=== PATIENT | female | born 1945 | race Caucasian/White ===

== ENCOUNTER → 2016-10-03 | Outpatient (CLI) | payer MEDICARE ==
--- NOTE | 2016-10-03 16:02 | XR ---
EXAMINATION TYPE: XR chest 2V DATE OF EXAM: 10/03/2016 3:57 PM COMPARISON: 06/18/2016 HISTORY: Shortness of breath TECHNIQUE: Frontal and lateral views of the chest are obtained. FINDINGS: Scattered senescent parenchymal changes noted. Hyperinflation compatible with COPD. No evidence for infiltrate. No evidence for atelectasis. Ill-defined right upper lobe pulmonary nodul e measures 1.[address] correlation is advised. Heart size is stable. Mediastinal structures are stable and grossly unremarkable. No evidence for hilar prominence. Degenerative changes dorsal spine. IMPRESSION: 1. No evidence for acute pulmonary disease. 2.Ill-defined right upper lobe pulmonary nodule measures 1.[address] correlation is advised
--- NOTE | 2016-10-06 14:42 | MM ---
Reason for exam: screening (asymptomatic). Last mammogram was performed 3 years and 11 months ago. History: Patient is postmenopausal. Cyst aspiration of the left breast. Took estrogen for 19 years beginning at age 43. Physical Findings: A clinical breast exam by your physician is recommended on an annual basis and results should be correlated with mammographic findings. MG 3D Screening Mammo W/Cad Bilateral CC and MLO view(s) were taken. Prior study comparison: November 11, 2012, bilateral digital screening mammo w/CAD. October 04, 2009, bilateral diagnostic digital mammog. There are scattered fibroglandular densities. Finding: There is a benign appearing, equal architectural distortion in the lower outer quadrant, middle position of the left breast, 5cm from the nipple. Small increased density right MLO view, not suspicious on tomosynthesis. Short term follow up in the right breast is recommended. New finding since November 11, 2012 and October 04, 2009. ASSESSMENT: Probably benign, BI-RAD 3 RECOMMENDATION: Follow-up diagnostic mammogram of both breasts in 6 months.
== END | disposition home or self-care (01) ==
LOC: RADMAMWWP 15:18
PROVIDERS: ATTEND Family Medicine
DX: Z12.31 Encounter for screening mammogram for malignant neoplasm of breast (principal); R91.1 Solitary pulmonary nodule
CPT/HCPCS: 71020; 77063; G0202

== ENCOUNTER → 2016-10-16 | Outpatient (CLI) | payer MEDICARE ==
--- NOTE | 2016-10-16 14:10 | CT ---
EXAMINATION TYPE: CT chest wo con DATE OF EXAM: 10/16/2016 1:41 PM COMPARISON: Prior chest x-ray September HISTORY: Patient has no complaints at time of service. Follow up to abnormal CXRs at [facility]. CT DLP: 192.9 mGycm Automated exposure control for dose reduction was used. FINDINGS: There is an ill-defined area of increased density in the right upper lobe measuring approximately 13 to 14 mm in size which likely corresponds to the area of abnormal increased attenuation seen on chest x-ray. Spicule of pleural extension is present at this level. There is no mediastinal, axillary, or hilar adenopathy. Coronary artery calcifications are present. Ascending aorta measures 3.8 cm. No end obronchial lesion, pleural or pericardial effusion. Patient is post cholecystectomy. No evident renal mass. IMPRESSION: ILL-DEFINED AREA OF INCREASED ATTENUATION RIGHT UPPER LOBE FELT LIKELY TO BE POSTINFLAMMATORY CHANGE. Follow-up to assess for stability or resolution.
== END | disposition home or self-care (01) ==
LOC: RADCTMAIN 13:14
PROVIDERS: ATTEND Family Medicine
DX: R91.8 Other nonspecific abnormal finding of lung field (principal)
CPT/HCPCS: 71250

== ENCOUNTER → 2017-03-12 | Outpatient (CLI) | payer MEDICARE ==
--- NOTE | 2017-03-12 14:28 | MM ---
Reason for exam: follow-up at short interval from prior study. Last mammogram was performed 5 months ago. History: Patient is postmenopausal. Cyst aspiration of the left breast, 1999. Took estrogen for 19 years beginning at age 43. Physical Findings: Nurse did not find any significant physical abnormalities on exam. MG 3D Diag Mammo W/Cad VIKTORIYA Bilateral CC and MLO view(s) were taken. Prior study comparison: October 03, 2016, bilateral MG 3d screening mammo w/cad. There are scattered fibroglandular densities. There is no discrete abnormality in the right or left breast. No significant new findings when compared with previous films. These results were verbally communicated with the patient and result sheet given to the patient on 03/12/17. ASSESSMENT: Benign, BI-RAD 2 RECOMMENDATION: Routine screening mammogram of both breasts in 1 year.
== END | disposition home or self-care (01) ==
LOC: RADMAMWWP 12:56
PROVIDERS: ATTEND Family Medicine
DX: R92.8 Other abnormal and inconclusive findings on diagnostic imaging of breast (principal)
CPT/HCPCS: G0204; G0279

== ENCOUNTER → 2017-05-05 | Outpatient (CLI) | payer MEDICARE ==
--- NOTE | 2017-05-05 15:52 | XR ---
EXAMINATION TYPE: XR bone survey complete DATE OF EXAM: 05/05/2017 COMPARISON: NONE HISTORY: E03.9 hypothyroidism, I10 HTN, D64.89 anemia Bony calvarium : 2 views of the bony calvarium demonstrate no lytic or sclerotic lesion Spine: Two views of the cervical, thoracic and lumbar spines are submitted. Moderate to severe degen erative change throughout the cervical spine with disc space narrowing and spondylosis. No lesions id entified. Moderate degenerative changes thoracic spine wo lesion identified. Moderate degenerative na rrowing lumbar spine wo lesions seen. Grade 2 anterolisthesis L4 and L5. PELVIS: Single view of the pelvis demonstrates no lytic or blastic lesions. UPPER EXTREMITIES: Two views of the upper extremities demonstrates no lytic or blastic lesions. LOWER EXTREMITIES: 2 views of the lower extremities demonstrates no lytic or blastic lesions. IMPRESSION: 1. No lytic or blastic lesions identified.
== END | disposition home or self-care (01) ==
LOC: RADXRMAIN 15:16
PROVIDERS: ATTEND Internal Medicine Hematology & Oncology
DX: D64.89 Other specified anemias (principal); E03.9 Hypothyroidism, unspecified; I10 Essential (primary) hypertension
CPT/HCPCS: 77075

== ENCOUNTER 2017-11-12 06:53 | Inpatient (IN) | payer MEDICARE ==
[2017-11-12] MEDS ORDERED: PANTOPRAZOLE 40 MG/10 ML VIAL IVP STA (07:27)
[2017-11-12] MEDS ORDERED: SODIUM CHLORIDE 0.9% 1,000 ML IV STA (07:27)
--- NOTE | 2017-11-12 07:30 | ED ---
General Adult HPI - General Chief complaint: GI Bleed Stated complaint: vomiting blood Time Seen by Provider: 11/12/17 07:20 Source: patient, family, RN notes reviewed Mode of arrival: ambulatory Limitations: no limitations - History of Present Illness Initial comments: Patient is a pleasant 72-year-old female presenting to the emergency Department with gastric intestinal bleeding. Patient has had rectal bleeding for the last couple of days, multiple times last night. Patient also had an episode of vomiting blood this morning. Patient is on Celebrex. Patient did have recent knee surgery. Patient does feel somewhat fatigued and lightheaded. Patient does have dyspnea with exertion. Family agrees patient looks pale. No abdominal pain. - Related Data Home Medications Medication Instructions Recorded Confirmed Acetaminophen Tab [Tylenol] 325 - 650 mg PO Q6H PRN 06/18/16 11/12/17 Levothyroxine Sodium [Synthroid] 88 mcg PO DAILY 06/18/16 11/12/17 Aspirin EC [Ecotrin Low Dose] 81 mg PO BID 11/12/17 11/12/17 Celecoxib [CeleBREX] 200 mg PO BID 11/12/17 11/12/17 Gabapentin [Neurontin] 200 mg PO TID 11/12/17 11/12/17 Lisinopril [Prinivil] 20 mg PO DAILY 11/12/17 11/12/17 Metoprolol Succinate [Toprol Xl] 50 mg PO DAILY 11/12/17 11/12/17 [place]-3 Fatty Acids/Fish Oil [Fish 1 cap PO DAILY 11/12/17 11/12/17 Oil 1,000 mg Softgel] traMADol HCL [Ultram] 50 mg PO BID PRN 11/12/17 11/12/17 Allergies Allergy/AdvReac Type Severity Reaction Status Date / Time ketorolac [From Toradol] AdvReac Abdominal Verified 11/12/17 08:15 Pain Review of Systems ROS Statement: Those systems with pertinent positive or pertinent negative responses have been documented in the HPI. ROS Other: All systems not noted in ROS Statement are negative. Constitutional: Denies: fever Eyes: Denies: eye pain ENT: Denies: ear pain Respiratory: Denies: cough Cardiovascular: Denies: chest pain Endocrine: Reports: fatigue Gastrointestinal: Reports: abdominal pain, hematemesis, melena, hematochezia Genitourinary: Denies: hematuria Musculoskeletal: Denies: back pain Skin: Denies: rash Neurological: Denies: headache Past Medical History Past Medical History: Hypertension, Thyroid Disorder Additional Past Medical History / Comment(s): kidney stone History of Any Multi-Drug Resistant Organisms: None Reported Past Surgical History: Section, Cholecystectomy, Hysterectomy, Orthopedic Surgery Additional Past Surgical History / Comment(s): gastric Past Psychological History: No Psychological Hx Reported Smoking Status: Former smoker Past Alcohol Use History: Rare Past Drug Use History: None Reported General Exam Limitations: no limitations General appearance: alert, in no apparent distress Head exam: Present: atraumatic, normocephalic Eye exam: Present: normal appearance, PERRL ENT exam: Present: normal oropharynx Neck exam: Present: normal inspection Respiratory exam: Present: normal lung sounds bilaterally Cardiovascular Exam: Present: regular rate, normal rhythm GI/Abdominal exam: Present: soft. Absent: tenderness Rectal exam: Present: black stool Extremities exam: Present: normal inspection Neurological exam: Present: alert Psychiatric exam: Present: normal affect, normal mood Skin exam: Present: pallor Course Vital Signs 11/12/17 11/12/17 06:56 07:47 Temperature 97.3 F L Pulse Rate 96 82 Respiratory 20 16 Rate Blood Pressure 204/84 180/81 O2 Sat by Pulse 99 99 Oximetry EKG Findings - EKG Comments: EKG Findings:: Sinus rhythm at 88. NH 138. QRS 72. QT 364. QTC 440. Normal axis. Normal QRS. No acute ST change. Medical Decision Making - Medical Decision Making Patient reevaluated and resting comfortably in bed. Vital signs stable. Patient and family updated on results and plan. Patient has previously seen Dr. Ingram and Dr. Hopson. Case was discussed in detail with Dr. Mccormick, who will admit for Dr. Anderson. - Lab Data Result diagrams: 11/12/17 07:20 11/12/17 07:20 Lab Results 11/12/17 11/12/17 11/12/17 Range/Units 07:20 07:20 07:20 WBC 12.1 H (3.8-10.6) k/uL RBC 2.02 L (3.80-5.40) m/uL Hgb 6.4 L* (11.4-16.0) gm/dL Hct 21.1 L (34.0-46.0) % MCV 104.2 H (80.0-100.0) fL MCH 31.8 (25.0-35.0) pg MCHC 30.5 L (31.0-37.0) g/dL RDW 15.5 (11.5-15.5) % Plt Count 473 H (150-450) k/uL Neutrophils % 73 % Lymphocytes % 19 % Monocytes % 5 % Eosinophils % 2 % Basophils % 0 % Neutrophils # 8.8 H (1.3-7.7) k/uL Lymphocytes # 2.3 (1.0-4.8) k/uL Monocytes # 0.6 (0-1.0) k/uL Eosinophils # 0.2 (0-0.7) k/uL Basophils # 0.0 (0-0.2) k/uL Hypochromasia Slight Macrocytosis Moderate PT (9.0-12.0) sec INR (<1.2) APTT (22.0-30.0) sec Sodium 139 (137-145) mmol/L Potassium 4.3 (3.5-5.1) mmol/L Chloride 105 (98-107) mmol/L Carbon Dioxide 25 (22-30) mmol/L Anion Gap 9 mmol/L BUN 28 H (7-17) mg/dL Creatinine 0.68 (0.52-1.04) mg/dL Est GFR (MDRD) Af Amer >60 (>60 ml/min/1.73 sqM) Est GFR (MDRD) Non-Af >60 (>60 ml/min/1.73 sqM) Glucose 128 H (74-99) mg/dL Calcium 9.2 (8.4-10.2) mg/dL Total Bilirubin 0.4 (0.2-1.3) mg/dL AST 23 (14-36) U/L ALT 36 (9-52) U/L Alkaline Phosphatase 105 (38-126) U/L Total Creatine Kinase 21 L (30-135) U/L CK-MB (CK-2) 0.3 (0.0-2.4) ng/mL CK-MB (CK-2) Rel Index 1.4 Troponin I <0.012 (0.000-0.034) ng/mL Total Protein 5.9 L (6.3-8.2) g/dL Albumin 3.3 L (3.5-5.0) g/dL Stool Occult Blood (Negative) Blood Type Blood Type Recheck Antibody Screen Spec Expiration Date 11/12/17 11/12/17 11/12/17 Range/Units 07:20 07:20 07:32 WBC (3.8-10.6) k/uL RBC (3.80-5.40) m/uL Hgb (11.4-16.0) gm/dL Hct (34.0-46.0) % MCV (80.0-100.0) fL MCH (25.0-35.0) pg MCHC (31.0-37.0) g/dL RDW (11.5-15.5) % Plt Count (150-450) k/uL Neutrophils % % Lymphocytes % % Monocytes % % Eosinophils % % Basophils % % Neutrophils # (1.3-7.7) k/uL Lymphocytes # (1.0-4.8) k/uL Monocytes # (0-1.0) k/uL Eosinophils # (0-0.7) k/uL Basophils # (0-0.2) k/uL Hypochromasia Macrocytosis PT 11.0 (9.0-12.0) sec INR 1.1 (<1.2) APTT 22.7 (22.0-30.0) sec Sodium (137-145) mmol/L Potassium (3.5-5.1) mmol/L Chloride (98-107) mmol/L Carbon Dioxide (22-30) mmol/L Anion Gap mmol/L BUN (7-17) mg/dL Creatinine (0.52-1.04) mg/dL Est GFR (MDRD) Af Amer (>60 ml/min/1.73 sqM) Est GFR (MDRD) Non-Af (>60 ml/min/1.73 sqM) Glucose (74-99) mg/dL Calcium (8.4-10.2) mg/dL Total Bilirubin (0.2-1.3) mg/dL AST (14-36) U/L ALT (9-52) U/L Alkaline Phosphatase (38-126) U/L Total Creatine Kinase (30-135) U/L CK-MB (CK-2) (0.0-2.4) ng/mL CK-MB (CK-2) Rel Index Troponin I (0.000-0.034) ng/mL Total Protein (6.3-8.2) g/dL Albumin (3.5-5.0) g/dL Stool Occult Blood Positive H (Negative) Blood Type O Positive Blood Type Recheck No Antibody Screen NEGATIVE Spec Expiration Date 11/15/2017 - 2320 Critical Care Time Critical Care Time: Yes Total Critical Care Time: 32 Disposition Clinical Impression: Gastrointestinal hemorrhage Disposition: ADMITTED IP TO THIS HOSP Condition: Serious Referrals: Ruthy Squires MD [Primary Care Provider] - 1-2 days Decision Time: 08:46
[2017-11-12 07:59] LABS: ALT 36 U/L (9-52); AST 23 U/L (14-36); Albumin 3.3 g/dL (3.5-5.0); Alkaline Phosphatase 105 U/L (38-126); Anion Gap 9 mmol/L; Blood Urea Nitrogen 28 mg/dL (7-17); Calcium 9.2 mg/dL (8.4-10.2); Carbon Dioxide 25 mmol/L (22-30); Chloride 105 mmol/L (98-107); Glucose 128 mg/dL (74-99); INR 1.1 (<1.2); Partial Thromboplastin Time 22.7 sec (22.0-30.0); Potassium 4.3 mmol/L (3.5-5.1); Sodium 139 mmol/L (137-145); Total Bilirubin 0.4 mg/dL (0.2-1.3); Total Protein 5.9 g/dL (6.3-8.2)
[2017-11-12 08:04] LABS: Creatine Kinase 21 U/L (30-135)
[2017-11-12 08:13] LABS: Basophils % (A) 0 %; Eosinophils # (A) 0.2 k/uL (0-0.7); Eosinophils % (A) 2 %; HCT 21.1 % (34.0-46.0); Hypochromasia Slight; Lymphocytes # (A) 2.3 k/uL (1.0-4.8); Lymphocytes % (A) 19 %; MCH 31.8 pg (25.0-35.0); MCHC 30.5 g/dL (31.0-37.0); MCV 104.2 fL (80.0-100.0); Macrocytosis Moderate; Mean Platelet Volume 8.1; Monocytes # (A) 0.6 k/uL (0-1.0); Monocytes % (A) 5 %; Neutrophils # (A) 8.8 k/uL (1.3-7.7); Neutrophils % (A) 73 %; Platelet Count 473 k/uL (150-450); RBC 2.02 m/uL (3.80-5.40); RDW 15.5 % (11.5-15.5); WBC 12.1 k/uL (3.8-10.6)
[2017-11-12 08:18] LABS: Creatine Kinase MB 0.3 ng/mL (0.0-2.4); HGB 6.4 gm/dL (11.4-16.0); Troponin I <0.012 ng/mL (0.000-0.034)
[2017-11-12] MEDS ORDERED: NALOXONE 0.4 MG/ML 1 ML VIAL IV PRN (08:47)
[2017-11-12] MEDS: SODIUM CHLORIDE 0.9% 1,000 ML IV SCH ×2 (08:59→19:04)
--- NOTE | 2017-11-12 11:14 | P.GSCN ---
<Janice Rapp - Last Filed: 11/12/17 10:58> History of Present Illness Consult date: 11/12/17 Reason for Consult: Acute blood loss anemia suspect GI bleed History of present illness: 72-year-old female presented to the emergency room on the day of admission with a chief complaint of developing over the last several days multiple episodes of having rectal bleeding dark maroon stool. Patient additionally stated that she started vomiting blood this morning stated that she's been experiencing extreme fatigue feeling dizzy lightheaded. Additionally reports having shortness of breath with any exertion. states she's recuperating from having a left knee done at [facility] on October 26. states that when she was discharged she was discharged on Celebrex 100 mg twice a day with aspirin. Patient was not taking any PPI at that time. Patient gives a history of in 2012 having a gastric ulcer treated surgically by Dr. Mendoza additionally patient states DrPedro Luis Ingram did do an EGD and a colonoscopy in 2011 there were no acute findings according to the patient currently patient is sitting up in bed is pale in appearance with a hemoglobin on arrival of 6.4. Patient states since being in the emergency room has had one hematemesis with melena. Patient continues to be report feeling dizzy lightheaded. Systolic blood pressure is elevated 170-200 denying chest pain when questioning. Past surgical history cholecystectomy, , hysterectomy, a recent left total knee done October 26 2017 Past medical history hypertension, thyroid, Review of Systems Essentially unremarkable except as mentioned in the present illness Past Medical History Past Medical History: Hypertension, Thyroid Disorder Additional Past Medical History / Comment(s): kidney stone History of Any Multi-Drug Resistant Organisms: None Reported Past Surgical History: Section, Cholecystectomy, Hysterectomy, Orthopedic Surgery Additional Past Surgical History / Comment(s): gastric Past Psychological History: No Psychological Hx Reported Smoking Status: Former smoker Past Alcohol Use History: Rare Past Drug Use History: None Reported Medications and Allergies Home Medications Medication Instructions Recorded Confirmed Type Acetaminophen Tab [Tylenol] 325 - 650 mg PO Q6H PRN 06/18/16 11/12/17 History Levothyroxine Sodium [Synthroid] 88 mcg PO DAILY 06/18/16 11/12/17 History Aspirin EC [Ecotrin Low Dose] 81 mg PO BID 11/12/17 11/12/17 History Celecoxib [CeleBREX] 200 mg PO BID 11/12/17 11/12/17 History Gabapentin [Neurontin] 200 mg PO TID 11/12/17 11/12/17 History Lisinopril [Prinivil] 20 mg PO DAILY 11/12/17 11/12/17 History Metoprolol Succinate [Toprol Xl] 50 mg PO DAILY 11/12/17 11/12/17 History [place]-3 Fatty Acids/Fish Oil [Fish 1 cap PO DAILY 11/12/17 11/12/17 History Oil 1,000 mg Softgel] traMADol HCL [Ultram] 50 mg PO BID PRN 11/12/17 11/12/17 History Allergies Allergy/AdvReac Type Severity Reaction Status Date / Time ketorolac [From Toradol] AdvReac Abdominal Verified 11/12/17 08:15 Pain Surgical - Exam Vital Signs Temp Pulse Resp BP Pulse Ox 97.3 F L 96 20 204/84 99 11/12/17 06:56 11/12/17 06:56 11/12/17 06:56 11/12/17 06:56 11/12/17 06:56 GENERAL APPEARANCE: Pleasant 72-year-old female patient is alert, oriented,x 3 in no acute distress. VITAL SIGNS: Reviewed heart rate in the 100s noted elevated blood pressure 170/ 79 180/81 HEENT: Head is normocephalic and atraumatic. Pupils are equal and reactive. The nares are patent. Oropharynx is clear without lesions. NECK: Supple without lymphadenopathy. Traches midline. HEART: S1, S2. Regular rate and rhythm. Currently denying any chest pain tightness or pressure no murmur LUNGS: No crackles or wheezes are heard. 2 L sats are 99% ABDOMEN: Soft, nontender, nondistended with good bowel sounds. No peritoneal signs. No palpable organomegaly or masses. EXTREMITIES: Normal skin color and turgor. No cyanosis, rash, ulceration, clubbing or edema. Radial pedal pulses are 2/4 bilaterally. Steri-Strips to left knee intact no redness surgical tenderness to the left knee appropriate NEUROLOGICAL: No focal deficits. Strength and sensation are grossly intact. Results - Labs 11/12/17 07:20 11/12/17 07:20 Abnormal Lab Results - Last 24 Hours (Table) 11/12/17 11/12/17 11/12/17 Range/Units 07:20 07:20 07:20 WBC 12.1 H (3.8-10.6) k/uL RBC 2.02 L (3.80-5.40) m/uL Hgb 6.4 L* (11.4-16.0) gm/dL Hct 21.1 L (34.0-46.0) % MCV 104.2 H (80.0-100.0) fL MCHC 30.5 L (31.0-37.0) g/dL Plt Count 473 H (150-450) k/uL Neutrophils # 8.8 H (1.3-7.7) k/uL BUN 28 H (7-17) mg/dL Glucose 128 H (74-99) mg/dL Total Creatine Kinase 21 L (30-135) U/L Total Protein 5.9 L (6.3-8.2) g/dL Albumin 3.3 L (3.5-5.0) g/dL Stool Occult Blood (Negative) Crossmatch 11/12/17 11/12/17 Range/Units 07:20 07:32 WBC (3.8-10.6) k/uL RBC (3.80-5.40) m/uL Hgb (11.4-16.0) gm/dL Hct (34.0-46.0) % MCV (80.0-100.0) fL MCHC (31.0-37.0) g/dL Plt Count (150-450) k/uL Neutrophils # (1.3-7.7) k/uL BUN (7-17) mg/dL Glucose (74-99) mg/dL Total Creatine Kinase (30-135) U/L Total Protein (6.3-8.2) g/dL Albumin (3.5-5.0) g/dL Stool Occult Blood Positive H (Negative) Crossmatch See Detail Diabetes panel 11/12/17 Range/Units 07:20 Sodium 139 (137-145) mmol/L Potassium 4.3 (3.5-5.1) mmol/L Chloride 105 (98-107) mmol/L Carbon Dioxide 25 (22-30) mmol/L BUN 28 H (7-17) mg/dL Creatinine 0.68 (0.52-1.04) mg/dL Glucose 128 H (74-99) mg/dL Calcium 9.2 (8.4-10.2) mg/dL AST 23 (14-36) U/L ALT 36 (9-52) U/L Alkaline Phosphatase 105 (38-126) U/L Total Protein 5.9 L (6.3-8.2) g/dL Albumin 3.3 L (3.5-5.0) g/dL Calcium panel 11/12/17 Range/Units 07:20 Calcium 9.2 (8.4-10.2) mg/dL Albumin 3.3 L (3.5-5.0) g/dL Pituitary panel 11/12/17 Range/Units 07:20 Sodium 139 (137-145) mmol/L Potassium 4.3 (3.5-5.1) mmol/L Chloride 105 (98-107) mmol/L Carbon Dioxide 25 (22-30) mmol/L BUN 28 H (7-17) mg/dL Creatinine 0.68 (0.52-1.04) mg/dL Glucose 128 H (74-99) mg/dL Calcium 9.2 (8.4-10.2) mg/dL Adrenal panel 11/12/17 Range/Units 07:20 Sodium 139 (137-145) mmol/L Potassium 4.3 (3.5-5.1) mmol/L Chloride 105 (98-107) mmol/L Carbon Dioxide 25 (22-30) mmol/L BUN 28 H (7-17) mg/dL Creatinine 0.68 (0.52-1.04) mg/dL Glucose 128 H (74-99) mg/dL Calcium 9.2 (8.4-10.2) mg/dL Total Bilirubin 0.4 (0.2-1.3) mg/dL AST 23 (14-36) U/L ALT 36 (9-52) U/L Alkaline Phosphatase 105 (38-126) U/L Total Protein 5.9 L (6.3-8.2) g/dL Albumin 3.3 L (3.5-5.0) g/dL Assessment and Plan Assessment: Impression Present on admission dizziness lightheadedness shortness of breath suspect due to acute blood loss anemia Present on admission episode of hematemesis melena suspect due to acute GI bleed Recent total left knee October 26 on Celebrex twice a day dosing History of gastric ulcer 2012 Hypertension urgency present on admission Present on admission gastrointestinal bleed with a hemoglobin of 6.4 History of hypertension Osteoarthritis plan Keep nothing by mouth for plan endoscopic Agree with giving 1 unit of packed red blood cells now *Protonix 40 IV now and then daily Medicine to address the medical issues as they arise Further surgical recommendations pending after evaluated by Dr. mata Will follow with you Surgical consultation note dictated for The above impression and plan of care have been discussed and directed by signing physician. Janice Rapp nurse practitioner acting as scribe for signing physician. <Ilia Mata - Last Filed: 11/13/17 08:47> Surgical - Exam Osteopathic Statement: *. No significant issues noted on an osteopathic structural exam other than those noted in the History and Physical/Consult. Vital Signs Temp Pulse Resp BP Pulse Ox 97.3 F L 96 20 204/84 99 11/12/17 06:56 11/12/17 06:56 11/12/17 06:56 11/12/17 06:56 11/12/17 06:56 Results - Labs 11/13/17 03:42 11/13/17 03:42 Abnormal Lab Results - Last 24 Hours (Table) 11/12/17 11/12/17 11/12/17 Range/Units 07:20 16:47 17:03 RBC 2.45 L (3.80-5.40) m/uL Hgb 7.6 L (11.4-16.0) gm/dL Hct 23.8 L (34.0-46.0) % RDW 18.1 H (11.5-15.5) % Chloride (98-107) mmol/L BUN (7-17) mg/dL Glucose (74-99) mg/dL POC Glucose (mg/dL) 125 H (75-99) mg/dL Crossmatch See Detail 11/13/17 11/13/17 Range/Units 03:42 03:42 RBC 2.07 L (3.80-5.40) m/uL Hgb 6.4 L* (11.4-16.0) gm/dL Hct 20.6 L (34.0-46.0) % RDW 18.4 H (11.5-15.5) % Chloride 108 H (98-107) mmol/L BUN 24 H (7-17) mg/dL Glucose 101 H (74-99) mg/dL POC Glucose (mg/dL) (75-99) mg/dL Crossmatch Diabetes panel 11/13/17 Range/Units 03:42 Sodium 140 (137-145) mmol/L Potassium 4.0 (3.5-5.1) mmol/L Chloride 108 H (98-107) mmol/L Carbon Dioxide 24 (22-30) mmol/L BUN 24 H (7-17) mg/dL Creatinine 0.60 (0.52-1.04) mg/dL Glucose 101 H (74-99) mg/dL Calcium 8.5 (8.4-10.2) mg/dL Calcium panel 11/13/17 Range/Units 03:42 Calcium 8.5 (8.4-10.2) mg/dL Pituitary panel 11/13/17 Range/Units 03:42 Sodium 140 (137-145) mmol/L Potassium 4.0 (3.5-5.1) mmol/L Chloride 108 H (98-107) mmol/L Carbon Dioxide 24 (22-30) mmol/L BUN 24 H (7-17) mg/dL Creatinine 0.60 (0.52-1.04) mg/dL Glucose 101 H (74-99) mg/dL Calcium 8.5 (8.4-10.2) mg/dL Adrenal panel 11/13/17 Range/Units 03:42 Sodium 140 (137-145) mmol/L Potassium 4.0 (3.5-5.1) mmol/L Chloride 108 H (98-107) mmol/L Carbon Dioxide 24 (22-30) mmol/L BUN 24 H (7-17) mg/dL Creatinine 0.60 (0.52-1.04) mg/dL Glucose 101 H (74-99) mg/dL Calcium 8.5 (8.4-10.2) mg/dL Assessment and Plan Plan: Agree with above. I discussed the case with the gastroenterology team. The patient is currently stable with vital signs appropriate. She is currently receiving 1 unit of packed red blood cell. The plan is for evaluation by the gastroenterology team and upper endoscopy based on their evaluation. Surgery will remain on consult for any additional surgical intervention. We will continue to follow.
--- NOTE | 2017-11-12 12:01 | P.HPIM ---
History of Present Illness H&P Date: 11/12/17 Chief Complaint: Rectal bleeding and one episode of coffee-ground emesis This is a 72-year-old female, patient of Dr. Anderson. She has a known past medical history of a bleeding duodenal ulcer about 5 years ago and underwent EGD that caused a duodenal bowel perforation. Also, history of hypertension, hypothyroidism and former smoker. She recently had a left total knee surgery about 2 weeks ago on October 26 at [facility]. She was sent home with aspirin 81 mg twice a day and Celebrex 200 mg twice a day. Patient reports she started noticing some black stools on Thursday. And by yesterday evening she was having multiple very watery black stools. Patient also reports one episode of coffee-ground emesis. She's been feeling nauseous. She has a hemoglobin of 6.4. She's receiving 1 unit of blood in the emergency room. Patient seen and examined in the ER. No abdominal pain. No fever chills or sweats. No chest pain or shortness of breath. No burning with urination. She was found to have evidence of accelerated hypertension blood pressure of 204/84 on admission, Down to 162/71. Patient is currently nothing by mouth. Surgical service has been consulted for an EGD and possible colonoscopy. She's been started on IV Protonix IV fluids. Monitor CBC. Stool for occult blood was positive. Started on IV Vasotec as needed for elevated blood pressures. Review of Systems Please refer to HPI otherwise unremarkable Past Medical History Past Medical History: Hypertension, Thyroid Disorder Additional Past Medical History / Comment(s): kidney stone, duodenal ulcer History of Any Multi-Drug Resistant Organisms: None Reported Past Surgical History: Section, Cholecystectomy, Hysterectomy, Orthopedic Surgery Additional Past Surgical History / Comment(s): gastric, EGD about 5 years ago. Last colonoscopy 2012 reported negative Past Psychological History: No Psychological Hx Reported Smoking Status: Former smoker Past Alcohol Use History: Rare Past Drug Use History: None Reported Medications and Allergies Home Medications Medication Instructions Recorded Confirmed Type Acetaminophen Tab [Tylenol] 325 - 650 mg PO Q6H PRN 06/18/16 11/12/17 History Levothyroxine Sodium [Synthroid] 88 mcg PO DAILY 06/18/16 11/12/17 History Aspirin EC [Ecotrin Low Dose] 81 mg PO BID 11/12/17 11/12/17 History Celecoxib [CeleBREX] 200 mg PO BID 11/12/17 11/12/17 History Gabapentin [Neurontin] 200 mg PO TID 11/12/17 11/12/17 History Lisinopril [Prinivil] 20 mg PO DAILY 11/12/17 11/12/17 History Metoprolol Succinate [Toprol Xl] 50 mg PO DAILY 11/12/17 11/12/17 History [place]-3 Fatty Acids/Fish Oil [Fish 1 cap PO DAILY 11/12/17 11/12/17 History Oil 1,000 mg Softgel] traMADol HCL [Ultram] 50 mg PO BID PRN 11/12/17 11/12/17 History Allergies Allergy/AdvReac Type Severity Reaction Status Date / Time ketorolac [From Toradol] AdvReac Abdominal Verified 11/12/17 08:15 Pain Physical Exam Vitals: Vital Signs Temp Pulse Resp BP Pulse Ox 11/12/17 11:29 97.9 F 104 H 16 162/71 11/12/17 11:02 97.6 F 100 16 180/62 11/12/17 10:52 98.2 F 104 H 18 173/74 11/12/17 09:20 87 16 178/79 99 11/12/17 07:47 82 16 180/81 99 11/12/17 06:56 97.3 F L 96 20 204/84 99 Intake and Output 11/11/17 11/12/17 11/12/17 22:59 06:59 14:59 Intake Total 0 Balance 0 Intake: Blood Product 0 Rc As-3 Unit 0 [id number] Other: Weight 59.874 kg Head normocephalic Neck supple Lungs clear to auscultation bilaterally no wheezing or crackles Heart regular rate and rhythm S1-S2, no rub or gallop Abdomen is soft nontender nondistended positive bowel sounds no hepatosplenomegaly Extremities no edema Neuro alert and orientated to 3 Results CBC & Chem 7: 11/12/17 07:20 11/12/17 07:20 Labs: Abnormal Lab Results - Last 24 Hours (Table) 11/12/17 11/12/17 11/12/17 Range/Units 07:20 07:20 07:20 WBC 12.1 H (3.8-10.6) k/uL RBC 2.02 L (3.80-5.40) m/uL Hgb 6.4 L* (11.4-16.0) gm/dL Hct 21.1 L (34.0-46.0) % MCV 104.2 H (80.0-100.0) fL MCHC 30.5 L (31.0-37.0) g/dL Plt Count 473 H (150-450) k/uL Neutrophils # 8.8 H (1.3-7.7) k/uL BUN 28 H (7-17) mg/dL Glucose 128 H (74-99) mg/dL Total Creatine Kinase 21 L (30-135) U/L Total Protein 5.9 L (6.3-8.2) g/dL Albumin 3.3 L (3.5-5.0) g/dL Stool Occult Blood (Negative) Crossmatch 11/12/17 11/12/17 Range/Units 07:20 07:32 WBC (3.8-10.6) k/uL RBC (3.80-5.40) m/uL Hgb (11.4-16.0) gm/dL Hct (34.0-46.0) % MCV (80.0-100.0) fL MCHC (31.0-37.0) g/dL Plt Count (150-450) k/uL Neutrophils # (1.3-7.7) k/uL BUN (7-17) mg/dL Glucose (74-99) mg/dL Total Creatine Kinase (30-135) U/L Total Protein (6.3-8.2) g/dL Albumin (3.5-5.0) g/dL Stool Occult Blood Positive H (Negative) Crossmatch See Detail Assessment and Plan Assessment: 1. Acute GI bleed with black stools and coffee-ground emesis: Patient is an on aspirin and Celebrex due to her recent knee surgery. Patient started on IV Protonix and IV fluids. Surgery has been consulted. Prior history of a bleeding duodenal ulcer with EGD that caused a duodenal bowel perforation about 5 years ago. Aspirin and Celebrex have been discontinued 2. Acute blood loss anemia secondary to GI bleed. Patient receiving 2 units of blood for hemoglobin of 6.4. Monitor CBC 3. Recent left total knee arthroplasty 4. Accelerated hypertension on admission. Patient reports not being able to take her blood pressure pills this morning. We'll add IV Vasotec as needed due to her nothing by mouth status 5. Hypothyroidism 6. Former smoker 7. Leukocytosis likely reactive. Repeat CBC in a.m. At this time we'll hold off on starting oral pills so she can proceed with endoscopy. Anticipate restarting meds tomorrow morning. Aspirin and Celebrex have been discontinued Time with Patient: Greater than 30 (Greater than 50% of the total time spent in counseling and coordination of care.I performed an examination of the patient and discussed their management with the physician Oil Field Operator. I have reviewed the Physician Oil Field Operator's notes and agree with the documented findings and plan of care)
--- NOTE | 2017-11-12 13:10 | P.CONS ---
History of Present Illness - Reason for Consult Consult date: 11/12/17 GI bleed Requesting physician: José Ramos - History of Present Illness 72-year-old female patient of Dr. Squires past medical history NSAID-induced perforated duodenal ulcer 5 years ago, recent left total knee arthroplasty 2 weeks ago, hypertension, cholecystectomy, and hypothyroidism. Patient presented with lightheadedness and fatigue with acute coffee-ground hematemesis ; mixed colored burgundy black bowel movements. 3 days ago patient started to pass darker colored bowel movements with mild nausea out without emesis. Yesterday evening she had a small nonbloody emesis but this morning had a mixed black/burgundy colored emesis. Her bowel movements over the last 48 hours became more black/mixed burgundy in color. Mild nausea midepigastric discomfort. Denies fever or chills or weight loss. She has been taking baby aspirin twice daily as well as Celebrex twice daily since knee surgery. Admission hemoglobin 6.4. She received 1 unit of blood. White count 12.1. MCV 104. Platelet 473. INR 1.1. BUN 28. Creatinine 0.6. Stool occult blood positive. Review of Systems Constitutional: Denies fever, chills, sweats, weight gain, or loss. HEENT: Negative for migraines, blurred vision or loss, earaches, drainage, tinnitus, oral mucosal lesions, dysphagia, or odynophagia. CARDIAC: Hypertension. Negative for chest pain, arrhythmias, or palpitation. RESPIRATORY: Negative for shortness of breath, hemoptysis, cough, or sputum production. GI: See HPI for pertinent findings. : Negative for hematuria, urgency, frequency, polyuria, or dysuria. GYNc: Denies possibility of . Negative vaginal discharge. MUSCULOSKELETAL: Osteoarthritis. Negative for muscle aches, swelling, arthritis , and arthralgias. NEUROLOGIC: Negative for stroke or TIA. ENDOCRINE: Hypothyroidism. Negative for thyroid problems. SKIN: Negative for rash or itching. PSYCHIATRIC: Negative history for depression and anxiety Past Medical History Past Medical History: Hypertension, Thyroid Disorder Additional Past Medical History / Comment(s): kidney stone, duodenal ulcer History of Any Multi-Drug Resistant Organisms: None Reported Past Surgical History: Section, Cholecystectomy, Hysterectomy, Orthopedic Surgery Additional Past Surgical History / Comment(s): gastric, EGD about 5 years ago. Last colonoscopy 2011 reported negative Past Anesthesia/Blood Transfusion Reactions: No Reported Reaction Additional Past Anesthesia/Blood Transfusion Reaction / Comm: Pt has received blood in the past without reaction. Smoking Status: Former smoker - Past Family History Father Family Medical History: Cancer Additional Family Medical History / Comment(s): Father had lung cancer. He was a smoker. Mother Family Medical History: No Reported History Medications and Allergies Home Medications Medication Instructions Recorded Confirmed Type Acetaminophen Tab [Tylenol] 325 - 650 mg PO Q6H PRN 06/18/16 11/12/17 History Levothyroxine Sodium [Synthroid] 88 mcg PO DAILY 06/18/16 11/12/17 History Aspirin EC [Ecotrin Low Dose] 81 mg PO BID 11/12/17 11/12/17 History Celecoxib [CeleBREX] 200 mg PO BID 11/12/17 11/12/17 History Gabapentin [Neurontin] 200 mg PO TID 11/12/17 11/12/17 History Lisinopril [Prinivil] 20 mg PO DAILY 11/12/17 11/12/17 History Metoprolol Succinate [Toprol Xl] 50 mg PO DAILY 11/12/17 11/12/17 History [place]-3 Fatty Acids/Fish Oil [Fish 1 cap PO DAILY 11/12/17 11/12/17 History Oil 1,000 mg Softgel] traMADol HCL [Ultram] 50 mg PO BID PRN 11/12/17 11/12/17 History Allergies Allergy/AdvReac Type Severity Reaction Status Date / Time ketorolac [From Toradol] AdvReac Abdominal Verified 11/12/17 08:15 Pain Physical Exam Vitals: Vital Signs Temp Pulse Resp BP Pulse Ox 11/12/17 12:37 97.2 F L 106 H 16 161/71 11/12/17 11:32 97.2 F L 104 H 16 177/77 11/12/17 11:29 97.9 F 104 H 16 162/71 11/12/17 11:02 97.6 F 100 16 180/62 11/12/17 10:52 98.2 F 104 H 18 173/74 11/12/17 09:20 87 16 178/79 99 11/12/17 07:47 82 16 180/81 99 11/12/17 06:56 97.3 F L 96 20 204/84 99 Intake and Output 11/11/17 11/12/17 11/12/17 22:59 06:59 14:59 Intake Total 0 Balance 0 Intake: Blood Product 0 Rc As-3 Unit 0 [id number] Other: Weight 59.874 kg General appearance: The patient is alert, oriented, in no acute distress. HET: Head is normocephalic and atraumatic. Pupils are equal and reactive. Oropharynx is clear without lesions. Neck: Supple without lymphadenopathy. Trachea midline. Heart: S1 S2. Regular rate and rhythm. Lungs: No crackles or wheezes are heard. Abdomen: Soft, mild midepigastric tenderness, nondistended with bowel sounds. No peritoneal signs. No palpable organomegaly or masses. Extremities: Left knee mild edema Steri-Strips intact without erythema or drainage. Normal skin color and turgor. No cyanosis, rash, ulceration, clubbing, or edema. Radial and pedal pulses are 2/4 bilaterally. Neurological: No focal deficits. Strength and sensation are grossly intact. Results CBC & Chem 7: 11/13/17 03:42 11/13/17 03:42 Labs: Abnormal Lab Results - Last 24 Hours (Table) 11/12/17 11/12/17 11/12/17 Range/Units 07:20 07:20 07:20 WBC 12.1 H (3.8-10.6) k/uL RBC 2.02 L (3.80-5.40) m/uL Hgb 6.4 L* (11.4-16.0) gm/dL Hct 21.1 L (34.0-46.0) % MCV 104.2 H (80.0-100.0) fL MCHC 30.5 L (31.0-37.0) g/dL Plt Count 473 H (150-450) k/uL Neutrophils # 8.8 H (1.3-7.7) k/uL BUN 28 H (7-17) mg/dL Glucose 128 H (74-99) mg/dL Total Creatine Kinase 21 L (30-135) U/L Total Protein 5.9 L (6.3-8.2) g/dL Albumin 3.3 L (3.5-5.0) g/dL Stool Occult Blood (Negative) Crossmatch 11/12/17 11/12/17 Range/Units 07:20 07:32 WBC (3.8-10.6) k/uL RBC (3.80-5.40) m/uL Hgb (11.4-16.0) gm/dL Hct (34.0-46.0) % MCV (80.0-100.0) fL MCHC (31.0-37.0) g/dL Plt Count (150-450) k/uL Neutrophils # (1.3-7.7) k/uL BUN (7-17) mg/dL Glucose (74-99) mg/dL Total Creatine Kinase (30-135) U/L Total Protein (6.3-8.2) g/dL Albumin (3.5-5.0) g/dL Stool Occult Blood Positive H (Negative) Crossmatch See Detail Assessment and Plan (1) Acute GI bleeding Narrative/Plan: 72-year-old female admitted with symptomatic acute blood loss anemia with mixed hematemesis melena. History of NSAID-induced perforated duodenal ulcer 5 years ago requiring surgery. Home medications include twice daily aspirin and NSAID therapy secondary to recent left knee arthroplasty. Suspect upper GI bleed possible NSAID-induced recurrent peptic ulcer disease. Current Visit: Yes Status: Acute Code(s): K92.2 - GASTROINTESTINAL HEMORRHAGE, UNSPECIFIED SNOMED Code(s): 29103811 (2) Acute blood loss anemia Current Visit: Yes Status: Acute Code(s): D62 - ACUTE POSTHEMORRHAGIC ANEMIA SNOMED Code(s): 471098806 (3) S/P left knee surgery Current Visit: Yes Status: Acute Code(s): Z98.890 - OTHER SPECIFIED POSTPROCEDURAL STATES SNOMED Code(s): 729424761 (4) Symptomatic anemia Current Visit: Yes Status: Acute Code(s): D64.9 - ANEMIA, UNSPECIFIED SNOMED Code(s): 766592859 (5) Macrocytosis Current Visit: Yes Status: Acute Code(s): D75.89 - OTHER SPECIFIED DISEASES OF BLOOD AND BLOOD-FORMING ORGANS SNOMED Code(s): 656757171 Plan: 1. Presently patient feels well fatigue lightheadedness have improved after blood transfusion. Hemodynamically stable. No further hematemesis or melena. 2. Nothing by mouth except medications and ice chips sparingly. Nothing by mouth after midnight. 3. EGD evaluation scheduled tomorrow sooner if clinical condition warrants. 4. CBC every 6 hours. 5. Protonix 40 mg IV every 12 hours. 6. General surgical consulted; recommendations appreciated. Case was discussed with general surgeon Dr. Ramos. 7. No aspirin/NSAIDs. The mainstreaming facilitator has discussed the risks, benefits and alternative therapies for the above-mentioned procedure and for both sedation/analgesia as well as necessary blood product administration, if indicated, as they pertain to this patient. The patient has indicated understanding and acceptance of the risks and procedures discussed. Thank you for this kind referral and the opportunity to participate in the care of your patient. This consultation was discussed with Dr. Cruz. The impression and plan of care have been directed as dictated.
[2017-11-12 16:49] LABS: Glucose,Whole Blood 125 mg/dL (75-99)
[2017-11-12 17:22] LABS: Anisocytosis Slight; Basophils % (A) 0 %; Eosinophils # (A) 0.1 k/uL (0-0.7); Eosinophils % (A) 1 %; HCT 23.8 % (34.0-46.0); HGB 7.6 gm/dL (11.4-16.0); Hypochromasia Slight; Lymphocytes # (A) 2.4 k/uL (1.0-4.8); Lymphocytes % (A) 27 %; MCH 31.2 pg (25.0-35.0); Macrocytosis Slight; Monocytes # (A) 0.5 k/uL (0-1.0); Monocytes % (A) 6 %; Neutrophils # (A) 5.7 k/uL (1.3-7.7); Neutrophils % (A) 63 %; Platelet Count 395 k/uL (150-450); Poikilocytosis Slight; RBC 2.45 m/uL (3.80-5.40); RDW 18.1 % (11.5-15.5); WBC 8.9 k/uL (3.8-10.6)
[2017-11-12 17:25] LABS: MCV 97.4 fL (80.0-100.0)
[2017-11-12] MEDS: PANTOPRAZOLE 40 MG/10 ML VIAL IV SCH (20:30)
[2017-11-12] MEDS: ZOLPIDEM 5 MG TAB PO PRN (22:39)
[2017-11-13 03:55] LABS: Anisocytosis Slight; Basophils % (A) 0 %; Eosinophils # (A) 0.2 k/uL (0-0.7); Eosinophils % (A) 2 %; HCT 20.6 % (34.0-46.0); Hypochromasia Slight; Lymphocytes % (A) 29 %; MCH 31.2 pg (25.0-35.0); MCHC 31.2 g/dL (31.0-37.0); MCV 99.8 fL (80.0-100.0); Macrocytosis Slight; Mean Platelet Volume 7.4; Monocytes # (A) 0.4 k/uL (0-1.0); Monocytes % (A) 5 %; Neutrophils # (A) 4.2 k/uL (1.3-7.7); Neutrophils % (A) 61 %; Platelet Count 400 k/uL (150-450); Poikilocytosis Slight; RBC 2.07 m/uL (3.80-5.40); RDW 18.4 % (11.5-15.5); WBC 6.9 k/uL (3.8-10.6)
[2017-11-13 04:03] LABS: Anion Gap 8 mmol/L; Blood Urea Nitrogen 24 mg/dL (7-17); Calcium 8.5 mg/dL (8.4-10.2); Carbon Dioxide 24 mmol/L (22-30); Chloride 108 mmol/L (98-107); Glucose 101 mg/dL (74-99); Sodium 140 mmol/L (137-145)
[2017-11-13 04:21] LABS: HGB 6.4 gm/dL (11.4-16.0)
[2017-11-13] MEDS: SODIUM CHLORIDE 0.9% 1,000 ML IV SCH ×3 (05:47→21:30)
[2017-11-13] MEDS ORDERED: MORPHINE SULFATE 4 MG/ML SYRINGE IVP PRN (06:36)
--- NOTE | 2017-11-13 08:50 | P.PN ---
Subjective Progress Note Date: 11/13/17 Patient seen and examined at bedside. She states that overnight she had approximately 4 bowel movements that were black and bloody. This a.m. her CBC did show a hemoglobin of 6.4. One unit of packed red blood cells is currently running. The patient states that she has no abdominal pain. She has had no nausea or emesis. Upper endoscopy is pending. Objective - Vital Signs Vital signs: Vital Signs Temp 97.4 F L 11/13/17 08:24 Pulse 108 H 11/13/17 08:24 Resp 18 11/13/17 08:24 BP 151/79 11/13/17 08:24 Pulse Ox 98 11/13/17 08:24 Intake & Output 11/12/17 11/13/17 11/13/17 18:59 06:59 18:59 Intake Total 310 1600 410 Output Total 1050 Balance 310 550 410 Weight 40.5 kg Intake: Intake, IV Titration 1600 Amount Sodium Chloride 0.9% 1, 1600 000 ml @ 100 mls/hr IV . Q10H [facility] Rx#:[id number] Blood Product 310 0 310 Rc As-3 Unit 0 310 [id number] Rc As-3 Unit 310 [id number] Other 100 Rc As-3 Unit 100 [id number] Output: Stool 1050 Other: Voiding Method Toilet # Bowel Movements 1 - Constitutional General appearance: Present: cooperative, no acute distress - EENT ENT: Present: hearing grossly normal - Respiratory Details: No difficulty with respiration - Gastrointestinal Gastrointestinal Comment(s): Soft, nontender, nondistended, no rebound, no guarding - Musculoskeletal Musculoskeletal: Present: generalized weakness - Psychiatric Psychiatric: Present: A&O x's 3 - Labs CBC & Chem 7: 11/13/17 03:42 11/13/17 03:42 Labs: Abnormal Lab Results - Last 24 Hours (Table) 11/12/17 11/12/17 11/12/17 Range/Units 07:20 16:47 17:03 RBC 2.45 L (3.80-5.40) m/uL Hgb 7.6 L (11.4-16.0) gm/dL Hct 23.8 L (34.0-46.0) % RDW 18.1 H (11.5-15.5) % Chloride (98-107) mmol/L BUN (7-17) mg/dL Glucose (74-99) mg/dL POC Glucose (mg/dL) 125 H (75-99) mg/dL Crossmatch See Detail 11/13/17 11/13/17 Range/Units 03:42 03:42 RBC 2.07 L (3.80-5.40) m/uL Hgb 6.4 L* (11.4-16.0) gm/dL Hct 20.6 L (34.0-46.0) % RDW 18.4 H (11.5-15.5) % Chloride 108 H (98-107) mmol/L BUN 24 H (7-17) mg/dL Glucose 101 H (74-99) mg/dL POC Glucose (mg/dL) (75-99) mg/dL Crossmatch Assessment and Plan Plan: 72-year-old female with GI bleed - Plan for upper endoscopy by gastroenterology soon - The patient will be receiving an additional packed unit of red blood cells - Continue resuscitative measures - Will continue to follow, will follow up on upper endoscopy
[2017-11-13] MEDS ORDERED: PANTOPRAZOLE 40 MG/10 ML VIAL IV SCH (09:00)
[2017-11-13] MEDS ORDERED: LEVOTHYROXINE IVP 100 MCG/5 ML VIAL IV SCH (09:00)
--- NOTE | 2017-11-13 09:29 | P.PN ---
Subjective Progress Note Date: 11/13/17 This is a 72-year-old female, patient of Dr. Anderson. She has a known past medical history of a bleeding duodenal ulcer about 5 years ago and underwent EGD that caused a duodenal bowel perforation. Also, history of hypertension, hypothyroidism and former smoker. She recently had a left total knee surgery about 2 weeks ago on October 26 at [facility]. She was sent home with aspirin 81 mg twice a day and Celebrex 200 mg twice a day. Patient reports she started noticing some black stools on Thursday. And by yesterday evening she was having multiple very watery black stools. Patient also reports one episode of coffee-ground emesis. She's been feeling nauseous. She has a hemoglobin of 6.4. She's receiving 1 unit of blood in the emergency room. Patient seen and examined in the ER. No abdominal pain. No fever chills or sweats. No chest pain or shortness of breath. No burning with urination. She was found to have evidence of accelerated hypertension blood pressure of 204/84 on admission, Down to 162/71. Patient is currently nothing by mouth. Surgical service has been consulted for an EGD and possible colonoscopy. She's been started on IV Protonix IV fluids. Monitor CBC. Stool for occult blood was positive. Started on IV Vasotec as needed for elevated blood pressures. 11/13/2017 patient had about 6 black stools through the night. Hemoglobin dropped again to 6.4. She has already received 1 unit of blood this morning. Another unit of blood will also be ordered. Case was discussed with GI service. They are moving up her EGD 2 this morning. She's had no episodes of vomiting. She is tachycardic. Denies any chest pain. Does feel weak and lightheaded. Denies any chest pain or shortness of breath. Denies any urinary difficulties Objective - Vital Signs Vital signs: Vital Signs Temp 97.4 F L 11/13/17 08:24 Pulse 108 H 11/13/17 08:24 Resp 18 11/13/17 08:24 BP 151/79 11/13/17 08:24 Pulse Ox 98 11/13/17 08:24 Intake & Output 11/12/17 11/13/17 11/13/17 18:59 06:59 18:59 Intake Total 310 1600 410 Output Total 1050 Balance 310 550 410 Weight 40.5 kg Intake: Intake, IV Titration 1600 Amount Sodium Chloride 0.9% 1, 1600 000 ml @ 100 mls/hr IV . Q10H [facility] Rx#:[id number] Blood Product 310 0 310 Rc As-3 Unit 0 310 [id number] Rc As-3 Unit 310 [id number] Other 100 Rc As-3 Unit 100 [id number] Output: Stool 1050 Other: Voiding Method Toilet # Bowel Movements 1 - Exam Head normocephalic Neck supple Lungs clear to auscultation bilaterally no wheezing or crackles Heart tachycardic on monitor Abdomen is soft nontender nondistended positive bowel sounds no hepatosplenomegaly Extremities no edema Neuro alert and orientated to 3 - Labs CBC & Chem 7: 11/13/17 03:42 11/13/17 03:42 Labs: Abnormal Lab Results - Last 24 Hours (Table) 11/12/17 11/12/17 11/12/17 Range/Units 07:20 16:47 17:03 RBC 2.45 L (3.80-5.40) m/uL Hgb 7.6 L (11.4-16.0) gm/dL Hct 23.8 L (34.0-46.0) % RDW 18.1 H (11.5-15.5) % Chloride (98-107) mmol/L BUN (7-17) mg/dL Glucose (74-99) mg/dL POC Glucose (mg/dL) 125 H (75-99) mg/dL Crossmatch See Detail 11/13/17 11/13/17 Range/Units 03:42 03:42 RBC 2.07 L (3.80-5.40) m/uL Hgb 6.4 L* (11.4-16.0) gm/dL Hct 20.6 L (34.0-46.0) % RDW 18.4 H (11.5-15.5) % Chloride 108 H (98-107) mmol/L BUN 24 H (7-17) mg/dL Glucose 101 H (74-99) mg/dL POC Glucose (mg/dL) (75-99) mg/dL Crossmatch Assessment and Plan Assessment: 1. Acute GI bleed with black stools and coffee-ground emesis:likely related to aspirin and Celebrex due to her recent knee surgery. Continue IV Protonix and IV fluids. Prior history of a bleeding duodenal ulcer with duodenal bowel perforation and EGD about 5 years ago. Aspirin and Celebrex have been discontinued. Patient scheduled for EGD this morning. Patient continues to have black stools 2. Acute blood loss anemia secondary to GI bleed. Hemoglobin 6.4 this morning. She'll receive a total of 2 units of blood this morning 3. Recent left total knee arthroplasty 4. Accelerated hypertension on admission. Continue IV Vasotec as needed 5. Hypothyroidism: Synthroid has been switched over to IV form 6. Former smoker 7. Leukocytosis likely reactive to GI bleed. Now resolved SCDs for DVT prophylaxis I performed an examination of the patient and discussed their management with the physician Acupressurist. I have reviewed the Physician Acupressurist's notes and agree with the documented findings and plan of care
[2017-11-13] MEDS ORDERED: LACTATED RINGERS 1,000 ML IV ONE (09:32)
[2017-11-13] MEDS ORDERED: EPINEPHrine 10 ML SYRINGE (0.1 MG/ML) MISCELLANE ONE ×2 (09:47→09:51)
--- NOTE | 2017-11-13 10:04 | P.PCN ---
Date of Procedure: 11/13/17 Procedure(s) Performed: BRIEF HISTORY: Patient is a 72-year-old, pleasant, 8 female, admitted to the hospital with acute GI bleed. She had multiple episodes of maroon colored stools as well as black tarry stools and 1 episode of coffee-ground emesis. She was up to have a hemoglobin of 6.9 requiring 1 unit of blood transfusion.. She had several episodes of black tarry stools and this morning hemoglobin is down to 6.4 g/dL and she received 1 unit of blood and second unit has been ordered. She had a history of bleeding peptic ulcer disease. She had a duodenal perforation 5 years ago at the time of dilation of duodenal stricture which was subsequently repaired by Dr. Mendoza. PROCEDURE PERFORMED: Esophagogastroduodenoscopy with injection of epinephrine, resolution clip placement and cautery using a gold probe. PREOPERATIVE DIAGNOSIS: Acute upper GI bleed. IV sedation per anesthesia. PROCEDURE: After informed consent was obtained, the patient was brought into the endoscopy unit. IV sedation was administered by Anesthesia under continuous monitoring. Initially the Olympus GIF-140 video endoscope was inserted into the mouth. Esophagus intubated without any difficulty. It was gradually advanced into the stomach and duodenum and carefully examined. In the bulb of the duodenum along the duodenal sweep there was a 1 cm ulceration with active bleeding identified. Initially 1 in 10,000 epinephrine was injected and total of 10 mL was injected with good hemostasis. Subsequently a resolution clip was placed but bleeding continued. At this time 2 more cc of 1 in 10,000 epinephrine was injected and once again hemostasis was achieved. At this time I proceeded with cautery using a gold probe in the base of the ulcer was cauterized with hemostasis. There was a another round adjacent duodenal bulbar ulcer noted with no active bleeding. The scope at this time was withdrawn to the stomach, adequately insufflated with air, and upon careful examination, mucosa of the antrum, had erosive gastritis and biopsies were done to evaluate for H. pylori infection. The body, cardia and the fundus appeared normal. The scope was then withdrawn into the esophagus. The GE junction was located at 39 cm from the incisors. Small hiatal hernia noted. The esophagus appeared normal. There were no erosions or ulcerations seen and the patient tolerated the procedure well. IMPRESSION: 1. 1 cm ulceration in the duodenal bulb along the duodenal sweep with active bleeding status post injection epinephrine followed by resolution clip placement and cautery using a gold probe with good hemostasis. 2. Antral erosive gastritis 3. Small hiatal hernia. RECOMMENDATIONS: The findings of this examination were discussed with the patient as well as a family. She will be continued on Protonix 40 mg IV piggyback every 12 hours and monitor CBC every 6 hours for the next 24 hours. Clear liquid diet today.
[2017-11-13] MEDS: PANTOPRAZOLE 40 MG/10 ML VIAL IV SCH ×2 (14:56→21:22)
[2017-11-13] MEDS: LEVOTHYROXINE 88 MCG TAB PO SCH (14:57)
[2017-11-13] MEDS: CYCLOBENZAPRINE 10 MG TAB PO PRN (15:04)
[2017-11-13] MEDS: GABAPENTIN 100 MG CAP PO SCH ×2 (15:57→21:21)
[2017-11-13 18:26] LABS: Anisocytosis Slight; Basophils % (A) 0 %; Eosinophils # (A) 0.5 k/uL (0-0.7); Eosinophils % (A) 4 %; HCT 29.9 % (34.0-46.0); Lymphocytes % (A) 22 %; MCHC 32.6 g/dL (31.0-37.0); Mean Platelet Volume 7.6; Monocytes # (A) 0.6 k/uL (0-1.0); Monocytes % (A) 4 %; Neutrophils # (A) 9.2 k/uL (1.3-7.7); Neutrophils % (A) 68 %; Platelet Count 392 k/uL (150-450); Poikilocytosis Slight; RBC 3.24 m/uL (3.80-5.40); RDW 18.6 % (11.5-15.5); WBC 13.6 k/uL (3.8-10.6)
[2017-11-13 18:29] LABS: HGB 9.7 gm/dL (11.4-16.0); MCV 92.1 fL (80.0-100.0)
[2017-11-13] MEDS: ENALAPRILAT 1.25 MG/ML 1 ML VIAL IVP PRN (21:29)
[2017-11-13] MEDS: ZOLPIDEM 5 MG TAB PO PRN (21:29)
[2017-11-14 00:12] LABS: Anisocytosis Slight; Basophils % (A) 0 %; Eosinophils # (A) 0.2 k/uL (0-0.7); Eosinophils % (A) 2 %; HCT 24.7 % (34.0-46.0); Lymphocytes # (A) 2.9 k/uL (1.0-4.8); Lymphocytes % (A) 34 %; MCHC 32.3 g/dL (31.0-37.0); Macrocytosis Slight; Mean Platelet Volume 7.4; Monocytes # (A) 0.5 k/uL (0-1.0); Monocytes % (A) 6 %; Neutrophils # (A) 4.8 k/uL (1.3-7.7); Neutrophils % (A) 55 %; Platelet Count 334 k/uL (150-450); Poikilocytosis Slight; RBC 2.66 m/uL (3.80-5.40); WBC 8.6 k/uL (3.8-10.6)
[2017-11-14 06:49] LABS: Anion Gap 5 mmol/L; Blood Urea Nitrogen 10 mg/dL (7-17); Calcium 8.2 mg/dL (8.4-10.2); Carbon Dioxide 25 mmol/L (22-30); Chloride 108 mmol/L (98-107); Glucose 90 mg/dL (74-99); Potassium 3.7 mmol/L (3.5-5.1); Sodium 138 mmol/L (137-145)
[2017-11-14 07:39] LABS: Anisocytosis Slight; Basophils % (A) 0 %; Eosinophils # (A) 0.2 k/uL (0-0.7); Eosinophils % (A) 3 %; HCT 25.3 % (34.0-46.0); HGB 8.2 gm/dL (11.4-16.0); Hypochromasia Slight; Lymphocytes # (A) 2.2 k/uL (1.0-4.8); Lymphocytes % (A) 33 %; MCHC 32.5 g/dL (31.0-37.0); MCV 92.5 fL (80.0-100.0); Mean Platelet Volume 8.3; Monocytes # (A) 0.5 k/uL (0-1.0); Monocytes % (A) 8 %; Neutrophils # (A) 3.7 k/uL (1.3-7.7); Neutrophils % (A) 55 %; Platelet Count 353 k/uL (150-450); Poikilocytosis Slight; RBC 2.73 m/uL (3.80-5.40); RDW 18.5 % (11.5-15.5); WBC 6.7 k/uL (3.8-10.6)
[2017-11-14] MEDS: LEVOTHYROXINE 88 MCG TAB PO SCH (07:43)
[2017-11-14] MEDS: GABAPENTIN 100 MG CAP PO SCH ×3 (09:20→20:24)
[2017-11-14] MEDS: LISINOPRIL 20 MG TAB PO SCH (09:20)
[2017-11-14] MEDS: METOPROLOL SUCCINATE (ER) 50 MG TAB.ER.24H PO SCH (09:20)
[2017-11-14] MEDS: PANTOPRAZOLE 40 MG/10 ML VIAL IV SCH ×2 (09:20→20:23)
--- NOTE | 2017-11-14 09:31 | P.PN ---
Subjective Progress Note Date: 11/14/17 Principal diagnosis: GI bleed Patient doing well. Hemoglobin stable. No gross GI bleeding overnight. Objective - Vital Signs Vital signs: Vital Signs Temp 98.9 F 11/14/17 04:00 Pulse 96 11/14/17 04:00 Resp 18 11/14/17 04:00 BP 152/76 11/14/17 04:00 Pulse Ox 97 11/14/17 04:00 Intake & Output 11/13/17 11/14/17 11/14/17 18:59 06:59 18:59 Intake Total 2100 600 Output Total 1150 1350 Balance 950 -750 Weight 40.5 kg 62.1 kg Intake: IV 500 Intake, IV Titration 300 Amount Sodium Chloride 0.9% 1, 300 000 ml @ 100 mls/hr IV . Q10H [facility] Rx#:[id number] Oral 880 300 Blood Product 620 Rc As-3 Unit 310 [id number] Rc As-3 Unit 310 [id number] Other 100 Rc As-3 Unit 100 [id number] Output: Urine 950 Stool 1150 400 Other: Voiding Method Toilet # Voids 3 3 # Bowel Movements 2 - Constitutional General appearance: Present: cooperative - Respiratory Details: Nonlabored - Cardiovascular Rhythm: regular - Gastrointestinal Gastrointestinal Comment(s): Soft nontender nondistended - Labs CBC & Chem 7: 11/14/17 06:08 11/14/17 06:08 Labs: Abnormal Lab Results - Last 24 Hours (Table) 11/12/17 11/13/17 11/13/17 Range/Units 07:20 18:10 23:59 WBC 13.6 H (3.8-10.6) k/uL RBC 3.24 L 2.66 L (3.80-5.40) m/uL Hgb 9.7 L D 8.0 L D (11.4-16.0) gm/dL Hct 29.9 L 24.7 L (34.0-46.0) % RDW 18.6 H 19.0 H (11.5-15.5) % Neutrophils # 9.2 H (1.3-7.7) k/uL Chloride (98-107) mmol/L Creatinine (0.52-1.04) mg/dL Calcium (8.4-10.2) mg/dL Crossmatch See Detail 11/14/17 11/14/17 Range/Units 06:08 06:08 WBC (3.8-10.6) k/uL RBC 2.73 L (3.80-5.40) m/uL Hgb 8.2 L (11.4-16.0) gm/dL Hct 25.3 L (34.0-46.0) % RDW 18.5 H (11.5-15.5) % Neutrophils # (1.3-7.7) k/uL Chloride 108 H (98-107) mmol/L Creatinine 0.50 L (0.52-1.04) mg/dL Calcium 8.2 L (8.4-10.2) mg/dL Crossmatch Assessment and Plan Assessment: Upper GI bleed Plan: Patient is doing well no signs of active bleeding. Continue to monitor hemoglobin and transfuse as necessary.
--- NOTE | 2017-11-14 13:49 | P.PN ---
Subjective Patient is doing well today. She is still having dark stools. No abdominal pain. Objective - Vital Signs Vital signs: Vital Signs Temp 97.0 F L 11/14/17 08:00 Pulse 96 11/14/17 08:00 Resp 18 11/14/17 08:00 BP 154/72 11/14/17 08:00 Pulse Ox 97 11/14/17 08:00 Intake & Output 11/13/17 11/14/17 11/14/17 18:59 06:59 18:59 Intake Total 2100 600 900 Output Total 1150 1350 2000 Balance 950 -750 -1100 Weight 40.5 kg 62.1 kg Intake: IV 500 Intake, IV Titration 300 300 Amount Sodium Chloride 0.9% 1, 300 300 000 ml @ 100 mls/hr IV . Q10H [facility] Rx#:[id number] Oral 880 300 600 Blood Product 620 Rc As-3 Unit 310 [id number] Rc As-3 Unit 310 [id number] Other 100 Rc As-3 Unit 100 [id number] Output: Urine 950 1600 Stool 1150 400 400 Other: Voiding Method Toilet # Voids 3 3 2 # Bowel Movements 2 - Exam General: The patient is awake and alert, in no distress Eye: there is normal conjunctiva bilaterally. Neck: The neck is supple, there is no JVD. Cardiovascular: Normal S1-S2, no S3-S4, no murmurs. Respiratory: Lungs clear to auscultation bilaterally Gastrointestinal: Abdomen is soft, nontender Musculoskeletal: There is no pedal edema. Neurological:. Speech is normal. Skin: Skin is warm and dry - Labs CBC & Chem 7: 11/14/17 06:08 11/14/17 06:08 Labs: Abnormal Lab Results - Last 24 Hours (Table) 11/12/17 11/13/17 11/13/17 Range/Units 07:20 18:10 23:59 WBC 13.6 H (3.8-10.6) k/uL RBC 3.24 L 2.66 L (3.80-5.40) m/uL Hgb 9.7 L D 8.0 L D (11.4-16.0) gm/dL Hct 29.9 L 24.7 L (34.0-46.0) % RDW 18.6 H 19.0 H (11.5-15.5) % Neutrophils # 9.2 H (1.3-7.7) k/uL Chloride (98-107) mmol/L Creatinine (0.52-1.04) mg/dL Calcium (8.4-10.2) mg/dL Crossmatch See Detail 11/14/17 11/14/17 Range/Units 06:08 06:08 WBC (3.8-10.6) k/uL RBC 2.73 L (3.80-5.40) m/uL Hgb 8.2 L (11.4-16.0) gm/dL Hct 25.3 L (34.0-46.0) % RDW 18.5 H (11.5-15.5) % Neutrophils # (1.3-7.7) k/uL Chloride 108 H (98-107) mmol/L Creatinine 0.50 L (0.52-1.04) mg/dL Calcium 8.2 L (8.4-10.2) mg/dL Crossmatch Assessment and Plan Assessment: 1. Acute GI bleed: Status post EGD with 1 cm ulceration of the duodenal bulb with active bleeding status post epinephrine injection. Continue Protonix. Aspirin and Celebrex have been discontinued. 2. Acute blood loss anemia secondary to GI bleed. Status post 2 unit PRBC transfusion during this admission 3. Recent left total knee arthroplasty 4. Accelerated hypertension on admission. Continue IV Vasotec as needed 5. Hypothyroidism: Synthroid has been switched over to IV form 6. Former smoker SCDs for DVT prophylaxis
[2017-11-14] MEDS: SODIUM CHLORIDE 0.9% 1,000 ML IV SCH ×2 (15:19→20:24)
[2017-11-14 15:42] LABS: Anisocytosis Slight; HGB 8.4 gm/dL (11.4-16.0); Hypochromasia Slight; MCHC 32.4 g/dL (31.0-37.0); MCV 92.6 fL (80.0-100.0); Macrocytosis Slight; Mean Platelet Volume 8.4; Platelet Count 314 k/uL (150-450); Poikilocytosis Slight; RBC 2.81 m/uL (3.80-5.40); RDW 18.6 % (11.5-15.5); WBC 6.5 k/uL (3.8-10.6)
[2017-11-14] MEDS: ZOLPIDEM 5 MG TAB PO PRN (20:27)
[2017-11-14] MEDS: CYCLOBENZAPRINE 10 MG TAB PO PRN (21:12)
[2017-11-14 21:34] LABS: Anisocytosis Slight; HCT 25.7 % (34.0-46.0); HGB 8.2 gm/dL (11.4-16.0); Hypochromasia Slight; MCH 29.9 pg (25.0-35.0); MCV 93.4 fL (80.0-100.0); Macrocytosis Slight; Platelet Count 340 k/uL (150-450); Poikilocytosis Slight; RBC 2.75 m/uL (3.80-5.40); RDW 18.5 % (11.5-15.5); WBC 6.8 k/uL (3.8-10.6)
[2017-11-14] MEDS: ENALAPRILAT 1.25 MG/ML 1 ML VIAL IVP PRN (23:06)
[2017-11-15] MEDS: LEVOTHYROXINE 88 MCG TAB PO SCH (06:25)
[2017-11-15] MEDS: SODIUM CHLORIDE 0.9% 1,000 ML IV SCH (06:25)
[2017-11-15 06:47] LABS: Anisocytosis Slight; HCT 25.7 % (34.0-46.0); HGB 8.2 gm/dL (11.4-16.0); Hypochromasia Slight; MCH 30.7 pg (25.0-35.0); Macrocytosis Slight; Mean Platelet Volume 7.9; Platelet Count 349 k/uL (150-450); Poikilocytosis Slight; RBC 2.68 m/uL (3.80-5.40); RDW 18.8 % (11.5-15.5); WBC 5.9 k/uL (3.8-10.6)
[2017-11-15 06:59] LABS: Anion Gap 7 mmol/L; Blood Urea Nitrogen 5 mg/dL (7-17); Calcium 8.2 mg/dL (8.4-10.2); Carbon Dioxide 24 mmol/L (22-30); Chloride 109 mmol/L (98-107); Glucose 84 mg/dL (74-99); Potassium 3.5 mmol/L (3.5-5.1); Sodium 140 mmol/L (137-145)
[2017-11-15] MEDS: PANTOPRAZOLE 40 MG/10 ML VIAL IV SCH ×2 (08:03→20:35)
[2017-11-15] MEDS: METOPROLOL SUCCINATE (ER) 50 MG TAB.ER.24H PO SCH (08:04)
[2017-11-15] MEDS: LISINOPRIL 20 MG TAB PO SCH (08:04)
[2017-11-15] MEDS: GABAPENTIN 100 MG CAP PO SCH ×3 (08:04→20:31)
[2017-11-15] MEDS: ENALAPRILAT 1.25 MG/ML 1 ML VIAL IVP PRN (11:10)
--- NOTE | 2017-11-15 12:51 | P.PN ---
Subjective Progress Note Date: 11/15/17 Principal diagnosis: GI bleed Patient doing well today tolerating her diet she took a shower she's been ambulating with a walker and toe touch. Pain is well controlled and improving. No new complaints. She is voiding on her own Objective - Vital Signs Vital signs: Vital Signs Temp 97.6 F 11/15/17 12:00 Pulse 63 11/15/17 12:00 Resp 16 11/15/17 12:00 BP 176/82 11/15/17 12:00 Pulse Ox 97 11/15/17 12:00 Intake & Output 11/14/17 11/15/17 11/15/17 18:59 06:59 18:59 Intake Total 1850 1600 1850 Output Total 3050 400 1450 Balance -1200 1200 400 Weight 62.5 kg Intake: IV 800 400 Sodium Chloride 0.9% 1, 800 400 000 ml @ 100 mls/hr IV . Q10H [facility] Rx#:[id number] Intake, IV Titration 300 400 Amount Sodium Chloride 0.9% 1, 300 400 000 ml @ 100 mls/hr IV . Q10H [facility] Rx#:[id number] Oral [id number] Output: Urine 2250 650 Stool 800 400 800 Other: Voiding Method Toilet # Voids 2 2 1 # Bowel Movements 1 1 - Constitutional General appearance: Present: cooperative - Neck Details: Paraspinal tenderness which is improved. no midline tenderness - Respiratory Details: Nonlabored - Cardiovascular Rhythm: regular - Gastrointestinal Gastrointestinal Comment(s): Soft nontender nondistended - Psychiatric Psychiatric: Present: A&O x's 3 - Labs CBC & Chem 7: 11/15/17 05:26 11/15/17 05:26 Labs: Abnormal Lab Results - Last 24 Hours (Table) 11/14/17 11/14/17 11/15/17 Range/Units 15:32 21:25 05:26 RBC 2.81 L 2.75 L (3.80-5.40) m/uL Hgb 8.4 L 8.2 L (11.4-16.0) gm/dL Hct 26.0 L 25.7 L (34.0-46.0) % RDW 18.6 H 18.5 H (11.5-15.5) % Chloride 109 H (98-107) mmol/L BUN 5 L (7-17) mg/dL Calcium 8.2 L (8.4-10.2) mg/dL 11/15/17 Range/Units 05:26 RBC 2.68 L (3.80-5.40) m/uL Hgb 8.2 L (11.4-16.0) gm/dL Hct 25.7 L (34.0-46.0) % RDW 18.8 H (11.5-15.5) % Chloride (98-107) mmol/L BUN (7-17) mg/dL Calcium (8.4-10.2) mg/dL Assessment and Plan Assessment: Upper GI bleed Plan: Patient has been cleared by orthopedic surgery for discharge with light toe touches and walking with a walker. She is going to follow up with them in 10- 14 days. Zhang catheter was removed and patient was cleared per urology. She is voiding on her own. She was instructed to follow up with her primary care physician regarding her concussion and overall care.
--- NOTE | 2017-11-15 12:56 | P.PN ---
Subjective Progress Note Date: 11/15/17 Principal diagnosis: GI bleed Patient is doing well no complaints. She's tolerating her diet. No bloody stools overnight hemoglobin stable Objective - Vital Signs Vital signs: Vital Signs Temp 97.6 F 11/15/17 12:00 Pulse 63 11/15/17 12:00 Resp 16 11/15/17 12:00 BP 176/82 11/15/17 12:00 Pulse Ox 97 11/15/17 12:00 Intake & Output 11/14/17 11/15/17 11/15/17 18:59 06:59 18:59 Intake Total 1850 1600 1850 Output Total 3050 400 1450 Balance -1200 1200 400 Weight 62.5 kg Intake: IV 800 400 Sodium Chloride 0.9% 1, 800 400 000 ml @ 100 mls/hr IV . Q10H [facility] Rx#:[id number] Intake, IV Titration 300 400 Amount Sodium Chloride 0.9% 1, 300 400 000 ml @ 100 mls/hr IV . Q10H [facility] Rx#:[id number] Oral [id number] Output: Urine 2250 650 Stool 800 400 800 Other: Voiding Method Toilet # Voids 2 2 1 # Bowel Movements 1 1 - Constitutional General appearance: Present: cooperative - Respiratory Details: Nonlabored - Cardiovascular Rhythm: regular - Gastrointestinal Gastrointestinal Comment(s): Soft nontender nondistended - Psychiatric Psychiatric: Present: A&O x's 3 - Labs CBC & Chem 7: 11/15/17 05:26 11/15/17 05:26 Labs: Abnormal Lab Results - Last 24 Hours (Table) 11/14/17 11/14/17 11/15/17 Range/Units 15:32 21:25 05:26 RBC 2.81 L 2.75 L (3.80-5.40) m/uL Hgb 8.4 L 8.2 L (11.4-16.0) gm/dL Hct 26.0 L 25.7 L (34.0-46.0) % RDW 18.6 H 18.5 H (11.5-15.5) % Chloride 109 H (98-107) mmol/L BUN 5 L (7-17) mg/dL Calcium 8.2 L (8.4-10.2) mg/dL 11/15/17 Range/Units 05:26 RBC 2.68 L (3.80-5.40) m/uL Hgb 8.2 L (11.4-16.0) gm/dL Hct 25.7 L (34.0-46.0) % RDW 18.8 H (11.5-15.5) % Chloride (98-107) mmol/L BUN (7-17) mg/dL Calcium (8.4-10.2) mg/dL Assessment and Plan Assessment: Upper GI bleed Plan: Patient doing well he will been stable no plans for acute surgical intervention advance diet as tolerated per GI
--- NOTE | 2017-11-15 13:48 | P.PN ---
Subjective Patient is still having bloody bowel movement. Hemoglobin is stable. Objective - Vital Signs Vital signs: Vital Signs Temp 97.6 F 11/15/17 12:00 Pulse 77 11/15/17 13:09 Resp 16 11/15/17 12:00 BP 184/81 11/15/17 13:09 Pulse Ox 97 11/15/17 12:00 Intake & Output 11/14/17 11/15/17 11/15/17 18:59 06:59 18:59 Intake Total 1850 1600 2500 Output Total 3050 400 1450 Balance -1200 1200 1050 Weight 62.5 kg Intake: IV 800 400 Sodium Chloride 0.9% 1, 800 400 000 ml @ 100 mls/hr IV . Q10H [facility] Rx#:[id number] Intake, IV Titration 300 400 Amount Sodium Chloride 0.9% 1, 300 400 000 ml @ 100 mls/hr IV . Q10H [facility] Rx#:[id number] Oral [id number] Output: Urine 2250 650 Stool 800 400 800 Other: Voiding Method Toilet # Voids 2 2 1 # Bowel Movements 1 1 - Exam General: The patient is awake and alert, in no distress Eye: there is normal conjunctiva bilaterally. Neck: The neck is supple, there is no JVD. Cardiovascular: Normal S1-S2, no S3-S4, no murmurs. Respiratory: Lungs clear to auscultation bilaterally Gastrointestinal: Abdomen is soft, nontender Musculoskeletal: There is no pedal edema. Neurological:. Speech is normal. Skin: Skin is warm and dry - Labs CBC & Chem 7: 11/15/17 05:26 11/15/17 05:26 Labs: Abnormal Lab Results - Last 24 Hours (Table) 11/14/17 11/14/17 11/15/17 Range/Units 15:32 21:25 05:26 RBC 2.81 L 2.75 L (3.80-5.40) m/uL Hgb 8.4 L 8.2 L (11.4-16.0) gm/dL Hct 26.0 L 25.7 L (34.0-46.0) % RDW 18.6 H 18.5 H (11.5-15.5) % Chloride 109 H (98-107) mmol/L BUN 5 L (7-17) mg/dL Calcium 8.2 L (8.4-10.2) mg/dL /12/30 Range/Units 05:26 RBC 2.68 L (3.80-5.40) m/uL Hgb 8.2 L (11.4-16.0) gm/dL Hct 25.7 L (34.0-46.0) % RDW 18.8 H (11.5-15.5) % Chloride (98-107) mmol/L BUN (7-17) mg/dL Calcium (8.4-10.2) mg/dL Assessment and Plan Assessment: 1. Acute GI bleed: Status post EGD with 1 cm ulceration of the duodenal bulb with active bleeding status post epinephrine injection. Continue Protonix. Aspirin and Celebrex have been discontinued. 2. Acute blood loss anemia secondary to GI bleed. Status post 2 unit PRBC transfusion during this admission 3. Recent left total knee arthroplasty 4. Accelerated hypertension on admission. I would add Norvasc 5 mg daily to her regimen. 5. Hypothyroidism: Synthroid has been switched over to IV form 6. Former smoker SCDs for DVT prophylaxis
[2017-11-15] MEDS: amLODIPine 5 MG TAB PO SCH (14:11)
[2017-11-15] MEDS ORDERED: hydrALAZINE HCL 20 MG/ML 1 ML VIAL IVP STA (17:54)
[2017-11-15] MEDS: CYCLOBENZAPRINE 10 MG TAB PO PRN (21:32)
[2017-11-15 22:12] LABS: Anisocytosis Slight; HCT 27.6 % (34.0-46.0); Hypochromasia Slight; MCH 30.5 pg (25.0-35.0); MCHC 32.4 g/dL (31.0-37.0); Macrocytosis Slight; Platelet Count 363 k/uL (150-450); Poikilocytosis Slight; RBC 2.94 m/uL (3.80-5.40); RDW 18.3 % (11.5-15.5); WBC 7.6 k/uL (3.8-10.6)
[2017-11-15] MEDS: ZOLPIDEM 5 MG TAB PO PRN (22:21)
[2017-11-16] MEDS: LEVOTHYROXINE 88 MCG TAB PO SCH (06:23)
[2017-11-16 06:36] LABS: Anisocytosis Slight; Basophils % (A) 1 %; Eosinophils # (A) 0.3 k/uL (0-0.7); Eosinophils % (A) 5 %; HCT 27.7 % (34.0-46.0); HGB 8.6 gm/dL (11.4-16.0); Hypochromasia Slight; Lymphocytes # (A) 1.8 k/uL (1.0-4.8); Lymphocytes % (A) 30 %; MCH 30.1 pg (25.0-35.0); MCHC 30.9 g/dL (31.0-37.0); MCV 97.6 fL (80.0-100.0); Macrocytosis Slight; Mean Platelet Volume 7.6; Monocytes # (A) 0.4 k/uL (0-1.0); Monocytes % (A) 7 %; Neutrophils # (A) 3.2 k/uL (1.3-7.7); Neutrophils % (A) 55 %; Platelet Count 351 k/uL (150-450); Poikilocytosis Slight; RBC 2.84 m/uL (3.80-5.40); RDW 18.7 % (11.5-15.5); WBC 5.9 k/uL (3.8-10.6)
[2017-11-16 06:53] LABS: Anion Gap 8 mmol/L; Blood Urea Nitrogen 6 mg/dL (7-17); Calcium 8.6 mg/dL (8.4-10.2); Carbon Dioxide 26 mmol/L (22-30); Chloride 105 mmol/L (98-107); Glucose 86 mg/dL (74-99); Potassium 3.4 mmol/L (3.5-5.1); Sodium 139 mmol/L (137-145)
--- NOTE | 2017-11-16 07:00 | P.PN ---
Subjective Progress Note Date: 11/15/17 The patient is a 72-year-old female, admitted to the hospital with acute GI bleed. She had multiple episodes of maroon colored stools as well as black tarry stools and 1 episode of coffee-ground emesis. She was up to have a hemoglobin of 6.9 requiring 1 unit of blood transfusion.. She had several episodes of black tarry stools and this morning hemoglobin is down to 6.4 g/dL and she received 1 unit of blood and second unit has been ordered. She had a history of bleeding peptic ulcer disease. She had a duodenal perforation 5 years ago at the time of dilation of duodenal stricture which was subsequently repaired by Dr. Mendoza. She underwent on November 13 an upper endoscopy by Dr. Cruz with injection of epinephrine, resolution clip placement and cautery using a gold probe for a 1 cm bleeding duodenal bulb ulcer. The patient has been doing well with stable hemoglobin. She has tolerated liquid diet which has been advanced. Objective - Vital Signs Vital signs: Vital Signs Temp 97.6 F 11/15/17 16:00 Pulse 72 11/15/17 16:00 Resp 16 11/15/17 16:00 BP 178/71 11/15/17 16:00 Pulse Ox 97 11/15/17 16:00 Intake & Output 11/14/17 11/15/17 11/15/17 18:59 06:59 18:59 Intake Total 1850 1600 2500 Output Total 3050 400 1850 Balance -1200 1200 650 Weight 62.5 kg Intake: IV 800 400 Sodium Chloride 0.9% 1, 800 400 000 ml @ 100 mls/hr IV . Q10H [facility] Rx#:[id number] Intake, IV Titration 300 400 Amount Sodium Chloride 0.9% 1, 300 400 000 ml @ 100 mls/hr IV . Q10H [facility] Rx#:[id number] Oral [id number] [id number] Output: Urine 2250 650 Stool 060 343 2876 Other: Voiding Method Toilet # Voids 2 2 1 # Bowel Movements 1 1 - Exam General appearance: The patient is alert, oriented, in no acute distress. HET: Head is normocephalic and atraumatic. Pupils are equal and reactive. Oropharynx is clear without lesions. Neck: Supple without lymphadenopathy. Trachea midline. Heart: S1 S2. Regular rate and rhythm. Lungs: No crackles or wheezes are heard. Abdomen: Soft, nondistended with bowel sounds. No peritoneal signs. No palpable organomegaly or masses. Extremities: Normal skin color and turgor. No cyanosis, rash, ulceration, clubbing, or edema. Radial and pedal pulses are 2/4 bilaterally. Neurological: No focal deficits. Strength and sensation are grossly intact. - Labs CBC & Chem 7: 11/16/17 05:25 11/15/17 05:26 Labs: Abnormal Lab Results - Last 24 Hours (Table) 11/14/17 11/15/17 11/15/17 Range/Units 21:25 05:26 05:26 RBC 2.75 L 2.68 L (3.80-5.40) m/uL Hgb 8.2 L 8.2 L (11.4-16.0) gm/dL Hct 25.7 L 25.7 L (34.0-46.0) % RDW 18.5 H 18.8 H (11.5-15.5) % Chloride 109 H (98-107) mmol/L BUN 5 L (7-17) mg/dL Calcium 8.2 L (8.4-10.2) mg/dL Assessment and Plan Assessment: Bleeding duodenal bulb ulcer controlled with endoscopic intervention. Plan: Advance diet and continue to monitor clinical course and blood counts.
[2017-11-16 08:09] VITALS: RESP 18; TEMP 98.1
[2017-11-16] MEDS ORDERED: POTASSIUM CHLORIDE ER 20 MEQ TAB.ER PO STA (08:25)
[2017-11-16] MEDS: GABAPENTIN 100 MG CAP PO SCH (08:44)
[2017-11-16] MEDS: amLODIPine 5 MG TAB PO SCH (08:44)
[2017-11-16] MEDS: METOPROLOL SUCCINATE (ER) 50 MG TAB.ER.24H PO SCH (08:45)
[2017-11-16] MEDS: PANTOPRAZOLE 40 MG/10 ML VIAL IV SCH (08:45)
[2017-11-16] MEDS: LISINOPRIL 20 MG TAB PO SCH (08:45)
[2017-11-16 11:29] VITALS: BP 132/68; PULSE 81
[2017-11-16] MEDS ORDERED: SODIUM FERRIC GLUCONAT-SUCROSE 125 MG in SODIUM CHLORIDE 0.9% 100 ML IVPB ONE (13:30)
--- NOTE | 2017-11-16 13:53 | P.DS ---
Providers Date of admission: 11/12/17 08:49 Expected date of discharge: 11/16/17 Attending physician: Nico Mccormick Consults: 11/12/17 08:47 Consult Physician Urgent Consulting Provider: Cullen Ingram Consult Reason/Comments: gi hemorrhage Do you want consulting provider notified?: Yes 11/12/17 12:32 Consult Physician Urgent Consulting Provider: Jos Forrester Consult Reason/Comments: gi bleed Do you want consulting provider notified?: Already Contacted Primary care physician: Ruthy Squires [facility] Course: Discharge diagnosis 1. Acute GI bleed secondary to a 1 cm ulceration of the duodenal bulb with active bleeding status post epinephrine injection and cauterization. Continue Protonix 40 mg by mouth twice a day. Duodenal ulcer likely secondary to Celebrex. Celebrex and aspirin discontinued. Patient has been educated to avoid NSAIDs. 2. Acute blood loss anemia secondary to GI bleed. Patient required blood transfusions during his admission. Hemoglobin at discharge is 8.6. She'll receive 1 dose of IV iron. 3. Recent left total knee arthroplasty 4. Accelerated hypertension on admission. 5. Hypothyroidism: Synthroid has been switched over to IV form 6. Former smoker 7. Leukocytosis likely reactive to GI bleed. Now resolved Hospital course This is a 72-year-old female, patient of Dr. Anderson. She has a known past medical history of a bleeding duodenal ulcer about 5 years ago and underwent EGD that caused a duodenal bowel perforation. Also, history of hypertension, hypothyroidism and former smoker. She recently had a left total knee surgery about 2 weeks ago on October 26 at [facility]. She was sent home with aspirin 81 mg twice a day and Celebrex 200 mg twice a day. Patient reports she started noticing some black stools on Thursday. And by yesterday evening she was having multiple very watery black stools. Patient also reports one episode of coffee-ground emesis. She's been feeling nauseous. She has a hemoglobin of 6.4. She's receiving 1 unit of blood in the emergency room. Patient seen and examined in the ER. No abdominal pain. No fever chills or sweats. No chest pain or shortness of breath. No burning with urination. She was found to have evidence of accelerated hypertension blood pressure of 204/84 on admission, Down to 162/71. Patient is currently nothing by mouth. Surgical service has been consulted for an EGD and possible colonoscopy. She's been started on IV Protonix IV fluids. Monitor CBC. Stool for occult blood was positive. Started on IV Vasotec as needed for elevated blood pressures. Patient was seen by GI and surgical service. She underwent a EGD which she showed a 1 cm duodenal bulb ulceration that was actively bleeding. She underwent epinephrine injection, cauterization and clipped to the area. Continue Protonix 40 mg twice a day. Patient tolerated advancement of diet. There is also evidence of antral erosive gastritis and small hiatal hernia on EGD. Patient is been cleared by GI service she'll follow-up with him in the outpatient setting. We'll follow-up with her PCP in 3 days to have a routine CBC and BMP checked. Patient medical stable for discharge. Patient told to return to office if she notices blood in her stools again. I performed an examination of the patient and discussed their management with the physician Actor Understudy. I have reviewed the Physician Actor Understudy's notes and agree with the documented findings and plan of care Patient Condition at Discharge: Stable Plan - Discharge Summary Discharge Rx Participant: No New Discharge Prescriptions: New amLODIPine [Norvasc] 5 mg PO DAILY #30 tab Pantoprazole Sodium [Protonix] 40 mg PO BID #60 tablet. Ferrous Sulfate [Feosol] 325 mg PO BID #60 tab Continue Levothyroxine Sodium [Synthroid] 88 mcg PO DAILY Acetaminophen Tab [Tylenol] 325 - 650 mg PO Q6H PRN PRN Reason: Pain traMADol HCL [Ultram] 50 mg PO BID PRN PRN Reason: Pain Lisinopril [Prinivil] 20 mg PO DAILY Gabapentin [Neurontin] 200 mg PO TID Metoprolol Succinate [Toprol Xl] 50 mg PO DAILY [place]-3 Fatty Acids/Fish Oil [Fish Oil 1,000 mg Softgel] 1 cap PO DAILY Discontinued Aspirin EC [Ecotrin Low Dose] 81 mg PO BID Celecoxib [CeleBREX] 200 mg PO BID Discharge Medication List Acetaminophen Tab [Tylenol] 325 - 650 mg PO Q6H PRN 06/18/16 [History] Levothyroxine Sodium [Synthroid] 88 mcg PO DAILY 06/18/16 [History] Gabapentin [Neurontin] 200 mg PO TID 11/12/17 [History] Lisinopril [Prinivil] 20 mg PO DAILY 11/12/17 [History] Metoprolol Succinate [Toprol Xl] 50 mg PO DAILY 11/12/17 [History] [place]-3 Fatty Acids/Fish Oil [Fish Oil 1,000 mg Softgel] 1 cap PO DAILY [History] traMADol HCL [Ultram] 50 mg PO BID PRN 11/12/17 [History] Ferrous Sulfate [Feosol] 325 mg PO BID #60 tab 11/16/17 [Rx] Pantoprazole Sodium [Protonix] 40 mg PO BID #60 tablet.dr 11/16/17 [Rx] amLODIPine [Norvasc] 5 mg PO DAILY #30 tab 11/16/17 [Rx] Follow up Appointment(s)/Referral(s): Vianca Cruz MD [STAFF PHYSICIAN] - 12/07/17 3:00 pm Ruthy Squires MD [Primary Care Provider] - 3 Days (Office to call with follow up appointment. ) Patient Instructions/Handouts: Gastrointestinal Bleeding (DC), Diet for Stomach Ulcers and Gastritis (GEN) Activity/Diet/Wound Care/Special Instructions: Diet: cardiac Activity: as tolerated Check CBC, BMP in 3 days Discharge Disposition: HOME SELF-CARE
[2017-11-16 14:21] VITALS: BMI 22.9
== END 2017-11-16 15:48 | disposition home or self-care (01) | DRG 378 ==
LOC: EC 06:53 → 6SEL 08:49
PROVIDERS: ADMIT Internal Medicine; ATTEND Internal Medicine
PROC: 30233N1 Transfusion of Nonautologous Red Blood Cells into Peripheral Vein, Percutaneous Approach (ICD-10-PCS; principal; 2017-11-12)
PROC: 0DB68ZX Excision of Stomach, Via Natural or Artificial Opening Endoscopic, Diagnostic (ICD-10-PCS; 2017-11-13 13:25)
PROC: 0W3P8ZZ Control Bleeding in Gastrointestinal Tract, Via Natural or Artificial Opening Endoscopic (ICD-10-PCS; 2017-11-13 13:25)
DX: K26.4 Chronic or unspecified duodenal ulcer with hemorrhage (principal); D62 Acute posthemorrhagic anemia; D75.89 Other specified diseases of blood and blood-forming organs; E03.9 Hypothyroidism, unspecified; I10 Essential (primary) hypertension; K29.60 Other gastritis without bleeding; K44.9 Diaphragmatic hernia without obstruction or gangrene; M19.90 Unspecified osteoarthritis, unspecified site; Z79.82 Long term (current) use of aspirin; Z80.1 Family history of malignant neoplasm of trachea, bronchus and lung; Z87.442 Personal history of urinary calculi; Z87.891 Personal history of nicotine dependence; Z90.710 Acquired absence of both cervix and uterus; Z96.652 Presence of left artificial knee joint; Z79.890 Hormone replacement therapy; Z79.899 Other long term (current) drug therapy
CPT/HCPCS: 36415; 43239; 43243; 43255; 43270; 80048; 80053; 82272; 82550; 82553; 84484; 85025; 85027; 85610; 85730; 86850; 86900; 86901; 86920; 88305; 93005; 96361; 96374; 99291

== ENCOUNTER → 2018-03-29 | Outpatient (CLI) | payer MEDICARE ==
--- NOTE | 2018-03-29 16:25 | CT ---
EXAMINATION TYPE: CT chest wo con DATE OF EXAM: 03/29/2018 COMPARISON: 10/16/2016 HISTORY: f/u lung nodule CT DLP: 238.2 mGycm. Automated Exposure Control for Dose Reduction was Utilized. TECHNIQUE: CT scan of the thorax is performed without IV contrast. FINDINGS: LUNGS: There is a persistent lateral right upper lobe ground glass opacity with development of new so lid component centrally measuring 1.0 cm on series 4 image 17. The lungs are grossly clear, there is no concerning parenchymal mass or nodule identified. There is no pleural effusion or pneumothorax s een. The tracheobronchial tree is patent. MEDIASTINUM: Lack of IV contrast is noted to limit evaluation for mediastinal and especially hilar ad enopathy. There are no definitive greater than 1 cm hilar or mediastinal lymph nodes. No cardiomega ly or pericardial effusion is seen. Mild coronary artery calcifications are again noted. Ascending th oracic aorta and main pulmonary artery are within normal limits. Moderate calcific atheromatous cruz es are seen of the visualized aorta. OTHER: No additional significant abnormality is seen. Mild multilevel degenerative changes of the th oracic spine are noted. No suspicious osseous lesion. Punctate sternal body. This likely represents a bone island on series 7 image 48 and series 6 image 15. IMPRESSION: Persistent right upper lobe groundglass opacity with development of a solid component ludy trally suspicious for slow-growing neoplasm such as bronchoalveolar carcinoma. PET/CT is recommended for further evaluation.
--- NOTE | 2018-03-30 10:17 | MM ---
Reason for exam: screening (asymptomatic). Last mammogram was performed 1 year and 1 month ago. History: Patient is postmenopausal. Cyst aspiration of the left breast, 1999. Took estrogen for 19 years beginning at age 43. Physical Findings: A clinical breast exam by your physician is recommended on an annual basis and results should be correlated with mammographic findings. MG 3D Screening Mammo W/Cad Bilateral CC and MLO view(s) were taken. Prior study comparison: March 12, 2017, bilateral MG 3d diag mammo w/cad [facility]. October 03, 2016, bilateral MG 3d screening mammo w/cad. There are scattered fibroglandular densities. Finding: There are typically benign vascular, linear calcifications in both breasts. There is no discrete abnormality. Bilateral skin lesions redemonstrated. ASSESSMENT: Benign, BI-RAD 2 RECOMMENDATION: Routine screening mammogram of both breasts in 1 year.
== END | disposition home or self-care (01) ==
LOC: RADCTMAIN 15:46
PROVIDERS: ATTEND Family Medicine
DX: Z12.31 Encounter for screening mammogram for malignant neoplasm of breast (principal); R91.8 Other nonspecific abnormal finding of lung field
CPT/HCPCS: 71250; 77063; 77067

== ENCOUNTER → 2018-04-17 | Outpatient (CLI) | payer MEDICARE ==
--- NOTE | 2018-04-18 11:20 | PE ---
EXAMINATION TYPE: PET CT fusion skull to thigh DATE OF EXAM: 04/17/2018 COMPARISON: CT chest 03/29/2018 Prior PET/CT: None HISTORY: Solitary pulmonary nodule TECHNIQUE: Following the intravenous administration of 10.71 mCi of F-18 FDG, whole body images are performed from the skull base to the midthigh. Images are reviewed on the computer in the coronal, a xial, and sagittal planes. Reconstructed rotating images are created on independent workstation and reviewed on the computer. A localization and attenuation correction CT is performed in conjunction with the PET scan. DLP: 294.77 mGycm SCAN: Initial Scan Blood glucose: 79 mg/dL Average Mediastinum SUV: 1.5 Average Liver SUV: 2.67 FINDINGS: NECK: No abnormal uptake. Degenerative changes are within the cervical spine. THORAX: No abnormal uptake. An area of pneumonitis within the periphery right upper lobe has an SUV v alue of 0.53. ABDOMEN: There is increased uptake within loops of bowel including the rectum which can be within nor mal limits. This would make evaluation for underlying focal abnormalities difficult. PELVIS: No abnormal uptake. Longer segments of bowel have increased uptake including the rectum which can be normal. OSSEOUS STRUCTURES: Some increase uptake within degenerative cervical spine regions, more likely rela ani to the degenerative changes. LOCALIZATION CT: Ascending thoracic aorta at the level the main pulmonary artery is 3.5 cm. The main pulmonary artery bifurcation is 2.9 cm. Coronary artery calcifications present. Small area of pneumon itis changes in the periphery of the right upper lobe, image 57. Gallbladder is been surgically resec ani. COMPARISON: Pneumonitis change is similar to previous exam. IMPRESSION: 1. Focal area of pneumonitis change in the right apex does not have elevated SUV values for focal upt pedro pablo. This is suggestive for inflammatory change. However, the size and the appearance of this pneumon itis change could be below the threshold for typical PET sensitivity and monitoring with CT chest is recommended.
== END ==
LOC: RADPETMAIN 12:16
PROVIDERS: ATTEND Internal Medicine Critical Care Medicine
DX: J18.9 Pneumonia, unspecified organism (principal); R91.1 Solitary pulmonary nodule
CPT/HCPCS: 78815; A9552

== ENCOUNTER → 2018-09-28 | Outpatient (CLI) | payer MEDICARE ==
--- NOTE | 2018-09-28 12:33 | CT ---
EXAMINATION TYPE: CT chest wo con DATE OF EXAM: 09/28/2018 COMPARISON: NONE HISTORY: Solitary pulmonary nodule CT DLP: 413 mGycm. Automated Exposure Control for Dose Reduction was Utilized. TECHNIQUE: CT scan of the thorax is performed without IV contrast. FINDINGS: LUNGS: There is redemonstration of a subsolid pulmonary nodule with a groundglass component measuring 1.4 cm on series 4 image 13 and redemonstration of a solid component centrally measuring up to 9 mm, similar in size from the prior of 03/29/2018 although the solid: Continued increase in density over m ultiple exams. 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 The refore this finding remains suspicious. There are no new pulmonary nodules seen. Remainder the lungs are clear other than left basilar pleura l-parenchymal scarring. No pleural effusion or pneumothorax. MEDIASTINUM: Lack of IV contrast is noted to limit evaluation for mediastinal and especially hilar a denopathy. There are no definitive greater than 1 cm hilar or mediastinal lymph nodes. No cardiomeg jessica or pericardial effusion is seen. Moderate calcific atheromatous changes are again noted of the ao rta. There is very low density of the vasculature that can be seen in anemia. Correlation with CBC co uld be performed. Moderate coronary artery calcifications are present. OTHER: Extensive calcifications are noted of the upper abdominal aorta and its branches. Cholecystect lauren has been performed. Solitary too small to accurately characterize hepatic lesion is stable from and could represent a cyst seen on series 3 image 43 measuring 4 mm. Mild multilevel degenerative changes of the thoracic spine are again seen. Punctate sclerotic foci re main similar to the prior exam, possibly benign bone islands. IMPRESSION: There is continued increased density to the central solid component of the subsegmental r ight upper lobe pulmonary nodule remaining suspicious for slow-growing pericardial or carcinoma given its CT characteristics. Of note bronchoalveolar carcinoma can be hypometabolic on PET CT.
== END ==
LOC: RADCTMAIN 12:01
PROVIDERS: ATTEND Internal Medicine Critical Care Medicine
DX: R91.1 Solitary pulmonary nodule (principal); Z79.1 Long term (current) use of non-steroidal anti-inflammatories (NSAID)
CPT/HCPCS: 71250

== ENCOUNTER → 2019-03-28 | Outpatient (CLI) | payer MEDICARE ==
--- NOTE | 2019-03-28 12:53 | CT ---
"EXAMINATION TYPE: CT chest w con DATE OF EXAM: 03/28/2019 COMPARISON: 09/28/2018 HISTORY: Chest Mass CT DLP: 195 mGycm, Automated exposure control for dose reduction was used. CONTRAST: Performed injected with 100 mL of Isovue 300. TECHNIQUE: Axial images were obtained at 5 mm thick sections. Reconstructed images are reviewed on [employer] computer in the coronal plane. FINDINGS: Portion of the thyroid visualized is normal. There is a groundglass opacity in the periphery of the right apex measuring 1.3 cm. Series 7 image 1 4. This is larger than comparison should be viewed with suspicion for neoplasm. No enlarged mediastinal or hilar adenopathy is evident. The ascending aorta diameter at the level o f the main pulmonary artery is 3.4 cm. The main pulmonary artery diameter at the bifurcation is 2.[address] sections are obtained through the upper abdomen. Abdomen is essentially unremarkable. IMPRESSIONS: 1. Enlarging area of increased density periphery of the right apex. Given the slow progressive nature of this finding, repeat testing with PET CT is recommended. Neoplasm is not excluded at this time co nsider, biopsy if PET CT is negative. 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 A [place] level critical message alert has been initiated for Rocky Wilder DO via the [employer] 0 | Critical Results System on 03/28/2019 12:51 PM. This message alert has been sent to Rocky Wilder DO via the preferences provided by the clinician for the receipt of Radiology Critical Findings. Nd ssage ID [id number]."
== END | disposition home or self-care (01) ==
LOC: RADCTMAIN 10:56
PROVIDERS: ATTEND Internal Medicine Critical Care Medicine
DX: J98.4 Other disorders of lung (principal)
CPT/HCPCS: 82565; 84520; 71260; 36415; Q9967

== ENCOUNTER → 2019-04-09 | Outpatient (CLI) | payer MEDICARE ==
--- NOTE | 2019-04-13 15:22 | PE ---
EXAMINATION TYPE: PET CT fusion skull to thigh DATE OF EXAM: 04/09/2019 COMPARISON: CT chest dated 03/28/2019, 09/28/2018 , and 10/16/2016 as well as the PET/CT dated 04/17/2018 HISTORY: Right lung mass TECHNIQUE: Following the intravenous administration of 9.98 mCi of F-18 FDG, whole body images are p erformed from the skull base to the midthigh. Images are reviewed on the computer in the coronal, ax ial, and sagittal planes. Reconstructed rotating images are created on independent workstation and r eviewed on the computer. A localization and attenuation correction CT is performed in conjunction w ith the PET scan. SCAN: Subsequent FINDINGS: Mediastinal background: 2.0 Abdominal background: 3.1 SKULL BASE AND NECK: No suspicious hypermetabolic activity. CHEST, MEDIASTINUM, AND HILAR REGION: The spiculated right upper lobe peripheral pulmonary nodule has a maximum SUV of 0.7. However this does demonstrate interval growth and increasing solid component p rogressively from the exam of 10/16/2016 to the exam of 03/29/2018 and then the exam of 03/28/2019. This initially was a small groundglass opacity subsequently measuring 1 cm in 2018 and 1.3 cm in 2019 susp icious for slow-growing bronchoalveolar carcinoma. This characteristically has low avidity on PET/CT. ABDOMEN AND PELVIS: No suspicious hypermetabolic uptake. OSSEOUS STRUCTURES: No suspicious hypermetabolic uptake. OTHER CT: There is very mild background centrilobular emphysema and scattered areas of subsegmental a telectasis. Moderate coronary calcifications are seen in the left main coronary artery. Very small hi atal hernia is present. Gallbladder is surgically absent. Extensive atherosclerosis is seen of the ab dominal aorta and its branches. Mild to moderate multilevel degenerative changes of the spine. Urinar y bladder is incompletely distended creating circumferential urinary bladder wall thickening. Multipl e scattered colonic diverticula are noted without pericolonic fat stranding. IMPRESSION: Despite the hypometabolic activity on PET/CT, the spiculated right apical pulmonary nodule remains maher spicious for slow-growing bronchoalveolar carcinoma given its continued progressive increase in solid component and size over multiple prior exams. Percutaneous biopsy is suggested. No mediastinal adeno ninoska.
== END | disposition home or self-care (01) ==
LOC: RADPETMAIN 11:57
PROVIDERS: ATTEND Internal Medicine Critical Care Medicine
DX: R91.1 Solitary pulmonary nodule (principal); J98.11 Atelectasis; I25.10 Atherosclerotic heart disease of native coronary artery without angina pectoris; I70.0 Atherosclerosis of aorta; M47.816 Spondylosis without myelopathy or radiculopathy, lumbar region; N32.89 Other specified disorders of bladder; K57.30 Diverticulosis of large intestine without perforation or abscess without bleeding
CPT/HCPCS: 78815

== ENCOUNTER → 2019-08-02 | Outpatient (CLI) | payer MEDICARE ==
[2019-08-02 11:04] LABS: African American GFR (CKD) >90 (>60 ml/min/1.73 sqM); Blood Urea Nitrogen 17 mg/dL (7-17)
--- NOTE | 2019-08-02 12:23 | CT ---
EXAMINATION TYPE: CT chest w con DATE OF EXAM: 08/02/2019 and PET/CT 04/09/2019 COMPARISON: 03/28/2019 HISTORY: Follow up nodule. No complaints at time of scan. CT DLP: 257.4 mGycm Automated exposure control for dose reduction was used. CONTRAST: CT scan of the chest is performed with IV Contrast, patient injected with 100 mL of Isovue 300. FINDINGS: LUNGS: Spiculated ground glass nodular density right upper lobe is redemonstrated and is unchanged at 1.3 cm maximal dimension. No additional nodules are seen. MEDIASTINUM: There are no greater than 1 cm hilar or mediastinal lymph nodes. No pericardial effusi on is seen. Thoracic aorta is of normal caliber. The heart is not enlarged. UPPER ABDOMEN: No significant abnormality appreciated. OTHER: No additional significant abnormality is seen. IMPRESSION: 1. Essentially stable spiculated groundglass nodular density right upper lobe neoplasm is not exclude d.
== END | disposition home or self-care (01) ==
LOC: RADCTMAIN 10:18
PROVIDERS: ATTEND Internal Medicine Critical Care Medicine
DX: R91.1 Solitary pulmonary nodule (principal); Z88.6 Allergy status to analgesic agent
CPT/HCPCS: 82565; 84520; 71260; 36415; Q9967

== ENCOUNTER → 2020-04-10 | Outpatient (CLI) | payer MEDICARE ==
--- NOTE | 2020-04-10 12:10 | CT ---
EXAMINATION TYPE: CT abdomen pelvis wo con DATE OF EXAM: 04/10/2020 COMPARISON: Nuclear medicine PET/CT 04/09/2019 HISTORY: Right flank pain CT DLP: 752 mGycm Automated exposure control for dose reduction was used. TECHNIQUE: Helical acquisition of images from the lung bases through the pelvis. FINDINGS: Lack of intravenous contrast could compromise sensitivity of the exam. There is a small hia ton hernia. LUNG BASES: No significant abnormality is appreciated. AORTA: No significant abnormality is appreciated. LIVER/GB: The patient is post cholecystectomy. Liver shows no mass. Focal low density lesion in the r ight lobe towards the dome measures 6 mm may represent a cyst additional which may be present on axia l image 30 within the right lobe, axial image 17 in the left lobe. PANCREAS: No significant abnormality is seen. SPLEEN: No significant abnormality is seen. ADRENALS: No significant abnormality is seen. KIDNEYS: No significant abnormality is seen. REPRODUCTIVE ORGANS: Not seen. URINARY BLADDER: Urinary bladder wall is thickened in appearance, difficult to exclude a mucosal les ion, cystitis, correlate. BOWEL: Diverticular changes associated with the sigmoid colon. FREE AIR: No Free Air is visible. ASCITES: None visible. PELVIC ADENOPATHY: None visualized. RETROPERITONEAL ADENOPATHY: No Retroperitoneal Adenopathy visible. OSSEOUS STRUCTURES: Degenerative disc changes, anterolisthesis L4-5 noted in the lumbar spine. IMPRESSION: POSTOP CHANGES. NO ABNORMALITY EVIDENT TO ACCOUNT FOR PATIENT'S SYMPTOMS. DIVERTICULOSIS. NONCONTRAST EXAM. DEGENERATIVE DISC DISEASE AND ADDITIONAL FINDINGS ABOVE, CORRELATE FOR POSSIBLE CYSTITIS
== END | disposition home or self-care (01) ==
LOC: RADCTMAIN 11:24
PROVIDERS: ATTEND Family Medicine
DX: K57.90 Diverticulosis of intestine, part unspecified, without perforation or abscess without bleeding (principal); K76.9 Liver disease, unspecified; N32.89 Other specified disorders of bladder; Z90.49 Acquired absence of other specified parts of digestive tract; Z87.442 Personal history of urinary calculi
CPT/HCPCS: 74176

== ENCOUNTER → 2021-07-16 | Outpatient (CLI) | payer MEDICARE ==
--- NOTE | 2021-07-18 14:35 | MM ---
Reason for exam: screening (asymptomatic). Last mammogram was performed 3 years and 4 months ago. History: Patient is postmenopausal. Cyst aspiration of the left breast, 1999. Took estrogen for 19 years beginning at age 43. Physical Findings: A clinical breast exam by your physician is recommended on an annual basis and results should be correlated with mammographic findings. MG 3D Screening Mammo W/Cad Bilateral CC and MLO view(s) were taken. Prior study comparison: March 29, 2018, bilateral MG 3d screening mammo w/cad. March 12, 2017, bilateral MG 3d diag mammo w/cad [facility]. There are scattered fibroglandular densities. Benign secretory and vascular calcifications. No significant changes when compared with prior studies. ASSESSMENT: Benign, BI-RAD 2 RECOMMENDATION: Routine screening mammogram of both breasts in 1 year.
--- NOTE | 2021-07-18 16:12 | BD ---
EXAMINATION TYPE: Axial Bone Density DATE OF EXAM: 07/16/2021 COMPARISON: 09/30/2007 CLINICAL HISTORY: Postmenopausal screening Height: 59 IN Weight: 137 LBS FRAX RISK QUESTIONS: Secondary Osteoporosis: 3. Menopause before 45: TOTAL HYST AGE 35 RISK FACTORS HISTORY OF: Family History of Osteoporosis: YES MOTHER Active: YES Diet low in dairy products/other sources of calcium: YES Postmenopausal woman: TOTAL HYST AGE 35 Take estrogen and/or progesterone medications: AGE 36-62 MEDICATIONS: Thyroid Medications: YES Which medication: Synthroid How Lon+ YEARS Additional Medications: SYNTHROID, METOPROLOL, BLOOD PRESSURE MEDS, STOMACH MEDS, EXAM MEASUREMENTS: Bone mineral densitometry was performed using the [employer] System. Bone mineral density as measured about the Lumbar spine is: ----- L1-L4(G/cm2): 1.353 T Score Values are as follows: ----- L2: 2.0 ----- L3: 1.9 ----- L4: 0.3 ----- L1-L4: 1.4 Bone mineral density has: Decreased -0.7% since study of: 09/30/2007 Bone mineral density about the R hip (g/cm2): 0.891 Bone mineral density about the L hip (g/cm2): 0.920 T Score values are as follows: -----R Neck: -1.1 -----L Neck: -0.8 -----R Total: -0.5 -----L Total: 0.1 Bone mineral density has: Decreased -19.3% since study of: 06/14/2001 IMPRESSION: Osteopenia (T Score between -2.5 and -1). There is slightly increased risk of fracture and the patient may be considered for treatment. Re-Screen 2-5 years. NOTE: T-SCORE=SD OF THE YOUNG ADULT MEAN.
== END | disposition home or self-care (01) ==
LOC: RADMAMWWP 14:59
PROVIDERS: ATTEND Family Medicine
DX: Z12.31 Encounter for screening mammogram for malignant neoplasm of breast (principal); Z78.0 Asymptomatic menopausal state; Z79.899 Other long term (current) drug therapy
CPT/HCPCS: 77063; 77067; 77080

== ENCOUNTER → 2023-07-21 | Outpatient (CLI) | payer MEDICARE ==
--- NOTE | 2023-07-21 10:45 | MM ---
Reason for Exam: Screening (asymptomatic). Last screening mammogram was performed 12 month(s) ago. Patient History: Menarche at age 11. First Full-Term at age 19. Left ovary removed at age 35. Right ovary removed at age 35. Hysterectomy at age 35. Postmenopausal. Estrogen for 19 years from age 43 until age 64. 2000, Cyst Aspiration on the Left side. Risk Values: Danni 5 year model risk: 1.5%. NCI Lifetime model risk: 2.5%. Prior Study Comparison: 03/29/2018 Bilateral Screening Mammogram, [facility]. 07/16/2021 Bilateral Screening Mammogram, [facility]. 07/17/2022 Bilateral MG 3D screening mammo w/cad, [facility]. Tissue Density: There are scattered fibroglandular densities. Findings: Analyzed By CAD. There is no suspicious group of microcalcifications or new suspicious mass in either breast. Benign calcifications within both breasts. Overall Assessment: Benign, BI-RAD 2 Management: Screening Mammogram of both breasts in 1 year. A clinical breast exam by your physician is recommended on an annual basis and results should be correlated with mammographic findings. Note on Danni scores and lifetime risk: 1. A Danni score greater than 3% is considered moderate risk. If this is the case, consider specialist referral to assess eligibility for a risk reducing agent. If overall lifetime risk for the development of breast cancer is 20% or higher, the patient may qualify for future screening with alternating mammogram and breast MRI. Electronically signed and approved by: Carlos Elizondo D.O.
== END | disposition home or self-care (01) ==
LOC: RADMAMWWP 09:48
PROVIDERS: ATTEND Family Medicine
DX: Z12.31 Encounter for screening mammogram for malignant neoplasm of breast (principal); Z78.0 Asymptomatic menopausal state
CPT/HCPCS: 77063; 77067

== ENCOUNTER → 2024-07-25 | Outpatient (CLI) | payer MEDICARE ==
--- NOTE | 2024-07-31 17:11 | MM ---
Reason for Exam: Screening (asymptomatic). Last screening mammogram was performed 12 month(s) ago. Patient History: Menarche at age 11. First Full-Term at age 19. Left ovary removed at age 35. Right ovary removed at age 35. Hysterectomy at age 35. Postmenopausal. Estrogen for 19 years from age 43 until age 64. 2000, Cyst Aspiration on the Left side. Risk Values: Danni 5 year model risk: 1.5%. NCI Lifetime model risk: 2.3%. Prior Study Comparison: 07/16/2021 Bilateral Screening Mammogram, [facility]. 07/17/2022 Bilateral MG 3D screening mammo w/cad, [facility]. 07/21/2023 Bilateral MG 3D screening mammo w/cad, [facility]. Tissue Density: There are scattered areas of fibroglandular density. Findings: Analyzed By CAD. The pattern is symmetrical. Pattern appears stable No suspicious groups of microcalcifications, spiculated or lobular masses, architectural distortion or other secondary signs of malignancy are mammographically apparent. Overall Assessment: Benign, BI-RAD 2 Management: Screening Mammogram of both breasts in 1 year. A negative mammogram report should not preclude additional follow up of suspicious palpable abnormalities. Patient should continue monthly self breast exam. A clinical breast exam by your physician is recommended on an annual basis and results should be correlated with mammographic findings. Note on Danni scores and lifetime risk: 1. A Danni score greater than 3% is considered moderate risk. If this is the case, consider specialist referral to assess eligibility for a risk reducing agent. 2. If overall lifetime risk for the development of breast cancer is 20% or higher, the patient may qualify for future screening with alternating mammogram and breast MRI. [facility], , 07/31/2024 5:08 PM. Electronically signed and approved by: Trevor Hull D.O. Radiologis
== END | disposition home or self-care (01) ==
LOC: RADMAMWWP 13:18
PROVIDERS: ATTEND Family Medicine
DX: Z12.31 Encounter for screening mammogram for malignant neoplasm of breast (principal); R92.323 Mammographic fibroglandular density, bilateral breasts; Z78.0 Asymptomatic menopausal state
CPT/HCPCS: 77063; 77067